=== PATIENT | male | born 1965 | race Caucasian/White ===

== ENCOUNTER 2024-09-27 17:17 | Inpatient (IN) | payer BC, SELFPAY ==
[2024-09-26] VITALS (24 sets, daily range): BP systolic 100–172; BP diastolic 58–117; PULSE 56–75; RESP 14–18; TEMP 35.5–37.1; O2SAT 91–100; BMI 34.5
[2024-09-26] MEDS: OXYCODONE (CR) 10 MG TAB.ER.12H PO (10:40)
[2024-09-26] MEDS: CELECOXIB 200 MG CAPSULE PO (10:40)
[2024-09-26] MEDS: ACETAMINOPHEN 500 MG TABLET 1000 MG PO (10:40)
[2024-09-26] MEDS: SODIUM CHLORIDE 0.9 % (FLUSH) 10 ML SYRINGE IVF (11:00)
[2024-09-26] MEDS: LACTATED RINGERS 1000 ML 1,000 ML 100 ML IV ×3 (11:00→15:46)
[2024-09-26] MEDS: MIDAZOLAM HCL 1 MG/ML inj IVP (11:55)
[2024-09-26] MEDS: fentaNYL 100 MCG/2 ML inj IVP (11:56)
--- NOTE | 2024-09-26 12:12 | SUR.PREOP ---
TIME?OUT:?1155 PT/RN/MDA?VERIFICATION?OF?SURGICAL?SITE,?PROCEDURE,?AND?CONSENT OBTAINED?PRIOR?TO?INVASIVE?PROCEDURE.
[2024-09-26] MEDS: CEFAZOLIN 2 GM INJ IVP (12:24)
[2024-09-26] MEDS: TRANEXAMIC ACID 100 MG/ML INJ 1000 MG IV (12:26)
--- NOTE | 2024-09-26 12:30 | CRLHL7_ITS ---
For Patients: As a result of the Cures Act, medical imaging exams and procedure reports are released immediately into your electronic medical record. You may view this report before your referring provider. If you have questions, please contact your health care provider. Indication: Hip replacement surgery Technique: AP hip fluoroscopic images. Fluoroscopy time 55.0 seconds. Findings/Impression: Hardware from a right total hip arthroplasty is in satisfactory position. Dictated by Al Vincent MD @ 09/27/2024 1:37:58 PM (Electronically Signed)
--- NOTE | 2024-09-26 12:30 | CRLHL7_ITS ---
For Patients: As a result of the Cures Act, medical imaging exams and procedure reports are released immediately into your electronic medical record. You may view this report before your referring provider. If you have questions, please contact your health care provider. Indication: Hip replacement surgery Technique: AP hip fluoroscopic image. Fluoroscopy time 68.2 seconds. Findings/Impression: Hardware from a right total hip arthroplasty is in satisfactory position. Dictated by Al Vincent MD @ 09/27/2024 1:37:18 PM (Electronically Signed)
--- NOTE | 2024-09-26 13:06 | W.PM.NB ---
Nerve Block Nerve Block Time Seen by Provider: 12:05 Date Seen: 09/26/24 Type of block requested by surgeon for post-operative analgesia: MARIAM/LFCN Side: left Time out performed: Yes Verification of patient name: Yes Verification of date of : Yes Site marking: site marked Name of person performing procedure: Oni Continuous monitoring Was continuous monitoring of O2 sat, B/P, tap and die maker technician, recorded every 15 minutes?: Yes Procedure Checklist: sterile prep, needles and gloves Ultrasound guided. Images saved: Yes Medications given in 5ml increments after negative aspiration: Marcaine %: 0.25 mL: 15 and Exparel mL: 10 Patient tolerated procedure well: Yes Additional comments: Needle noted below psoas tendon needle noted adjacent to LFCN Block Charges Block Charge (with Pro Fee): Other Periph Nerve Block Use of Ultrasound Machine for Block: Yes- US Guidance/pain block
--- NOTE | 2024-09-26 13:08 | W.PM.NB ---
Nerve Block Nerve Block Time Seen by Provider: 12:07 Date Seen: 09/26/24 Type of block requested by surgeon for post-operative analgesia: MARIAM/LFCN Side: right Time out performed: Yes Verification of patient name: Yes Verification of date of : Yes Site marking: site marked Name of person performing procedure: Oni Continuous monitoring Was continuous monitoring of O2 sat, B/P, phototypesetting equipment monitor, recorded every 15 minutes?: Yes Procedure Checklist: sterile prep, needles and gloves Ultrasound guided. Images saved: Yes Medications given in 5ml increments after negative aspiration: Marcaine %: 0.25 mL: 15 and Exparel mL: 10 Patient tolerated procedure well: Yes Additional comments: Needle noted below psoas tendon needle noted adjacent to LFCN Block Charges Block Charge (with Pro Fee): Other Periph Nerve Block Use of Ultrasound Machine for Block: Yes- US Guidance/pain block
--- NOTE | 2024-09-26 13:08 | W.ANESCHARGE ---
Anesthesia Charges Start Date/Time Anesthesia Start Date: 09/26/24 Anesthesia Start Time: 12:12 Stop Date/Time Anesthesia Stop Date: 09/26/24 Anesthesia Stop Time: 17:02
--- NOTE | 2024-09-26 14:52 | SUR.OPER ---
LEFT HIP DRESSING PLACED AT 14:40 BY Yarelis FALLON).
--- NOTE | 2024-09-26 16:14 | CRLHL7_ITS ---
For Patients: As a result of the Cures Act, medical imaging exams and procedure reports are released immediately into your electronic medical record. You may view this report before your referring provider. If you have questions, please contact your health care provider. Indication: Postop Technique: AP hip centered pelvis and lateral view right hip Findings/Impression: Hardware from a right total hip arthroplasty is in satisfactory position. Bone alignment is normal. No sign of acute fracture. Postop changes are within normal limits. Dictated by Al Vincent MD @ 09/27/2024 1:40:14 PM (Electronically Signed)
--- NOTE | 2024-09-26 16:14 | CRLHL7_ITS ---
For Patients: As a result of the Cures Act, medical imaging exams and procedure reports are released immediately into your electronic medical record. You may view this report before your referring provider. If you have questions, please contact your health care provider. Indication: Postop Technique: AP hip centered pelvis and lateral view left hip Findings/Impression: Hardware from a left total hip arthroplasty is in satisfactory position. Bone alignment is normal. No sign of acute fracture. Postop changes are within normal limits. Dictated by Al Vincent MD @ 09/27/2024 1:41:03 PM (Electronically Signed)
--- NOTE | 2024-09-26 16:21 | P.ORPRC_ITS ---
Procedure Note Date of procedure: 09/26/24 Procedure: PREOPERATIVE DIAGNOSIS: Bilateral hip osteoarthritis POSTOPERATIVE DIAGNOSIS: Bilateral hip osteoarthritis NAME OF OPERATION: Bilateral total hip arthroplasty SURGEON: Conrad Go MD MANAGER SHELL: Arlene Hendrix PA-C, CAIN Araiza IMPLANTS: 1. [employer] # 54 sector ingrowth cup 2. 36 x 54 +4 neutral polyethylene 3. Actis # 10 standard collared ingrowth stem 4. 36 + 8.5 ceramic femoral head on the left, -2 ceramic femoral head on the right ANESTHESIA: General ESTIMATED BLOOD LOSS: 1100 cc COMPLICATIONS: None SPECIMENS: None DRAINS: None PREOPERATIVE ANTIBIOTICS: Ancef 2 grams INDICATIONS: The patient is a 59-year-old with a longstanding history of severe, unrelenting bilateral hip pain secondary to end-stage bilateral hip osteoarthritis. Despite appropriate nonoperative management, including activity modification, use of an assist device, anti-inflammatories, [id number] pain medication, physical therapy and injections, they continue to have pain and disability. Operative intervention was offered. The risks, benefits and expected outcomes were discussed in detail. These included but were not limited to: Infection, bleeding, injury to blood vessel or nerve, venous thromboembolism. All questions were answered to their satisfaction. Use of an personal care assistant was necessary throughout the case for patient positioning and safety, soft tissue retraction and closure. PROCEDURE: The patient was placed supine on the [place] table. General anesthesia was administered. The personal care assistant made sure the patient was properly positioned. The left hip was prepped and draped in the usual sterile fashion. The image intensifier was brought in for a perfect AP pelvis and a perfect double tear drop AP view of each hip which were used for intraoperative templating with our fluoroscopic guide. An oblique incision was made 3 cm distal and 3 cm lateral to the anterior superior iliac spine. The personal care assistant retracted the soft tissues to protect them. Subcutaneous dissection was taken with electrocautery to the superficial fascia. The fascia was divided in line with the incision. Blunt dissection was carried medially to the tensor fascia darek and sartorius interval. Deep dissection was carried with electrocautery. The circumflex vessels were cauterized and divided. The capsule was exposed and then divided in a T- fashion, tagged with #1 Ethibond sutures. Retractors were placed in the joint, held by the personal care assistant. The corkscrew was placed in the femoral head. The neck cut was made in the subcapital region. We made a second neck cut more distal. The napkin ring of bone was removed. The femoral head was removed intact. Acetabular retractors were placed, held by the personal care assistant. The labrum was sharply debrided. The capsule was released. The 43 mm reamer was used to the true medial wall. We then enlarged in 2 mm increments using the image intensifier for our reamer placement. We impacted the cup which had excellent purchase. We placed the polyethylene. Attention was then turned to the proximal femur. The limb was placed in 140 degrees of external rotation, maximum extension and adduction. A significant amount of time was spent releasing the capsule to allow us to deliver the femur into the wound and complete the femoral side safely. Retractors were held by the personal care assistant throughout the femoral preparation. The box lining machine feeder and canal finder were used. Broaches were used to a stable size. The calcar reamer was used. Trial components were placed. The hip was reduced and was found to be stable with appropriate soft tissue tension. Length and offset had been nicely restored using the image intensifier and our fluoroscopic guide. Trial components were removed. The stem was impacted. We placed the femoral head. Again, the hip was reduced and was found to be stable with appropriate soft tissue tension. Length and offset had been nicely restored. The personal care assistant did a three minute dilute Betadine solution soak. The personal care assistant irrigated the wound with 3 liters of normal saline via pulse lavage. The personal care assistant repaired the anterior capsule with a #1 Vicryl and our previously placed Ethibond sutures. The personal care assistant closed the fascia over the tensor fascia darek with a #1 PDO Stratafix, subcutaneous tissues with 2-0 Vicryl, skin with a running 3-0 Stratafix and glue. A dry dressing was applied by the personal care assistant. Blood loss was 550 mL, the patient's vital signs were stable. Therefore, we elected to proceed with right hip replacement. The right hip was prepped and draped in the usual sterile fashion. An oblique incision was made 3 cm distal and 3 cm lateral to the anterior superior iliac spine. The personal care assistant retracted the soft tissues to protect them. Subcutaneous dissection was taken with electrocautery to the superficial fascia. The fascia was divided in line with the incision. Blunt dissection was carried medially to the tensor fascia darek and sartorius interval. Deep dissection was carried with electrocautery. The circumflex vessels were cauterized and divided. The capsule was exposed and then divided in a T-fashion, tagged with #1 Ethibond sutures. Retractors were placed in the joint, held by the personal care assistant. The corkscrew was placed in the femoral head. The neck cut was made in the subcapital region. We made a second neck cut more distal. The napkin ring of bone was removed. The femoral head was removed intact. Acetabular retractors were placed, held by the personal care assistant. The labrum was sharply debrided. The capsule was released. The 43 mm reamer was used to the true medial wall. We then enlarged in 2 mm increments using the image intensifier for our reamer placement. We impacted the cup which had excellent purchase. We placed the polyethylene. Attention was then turned to the proximal femur. The limb was placed in 140 degrees of external rotation, maximum extension and adduction. A significant amount of time was spent releasing the capsule to allow us to deliver the femur into the wound and complete the femoral side safely. Retractors were held by the personal care assistant throughout the femoral preparation. The box lining machine feeder and canal finder were used. Broaches were used to a stable size. The calcar reamer was used. Trial components were placed. The hip was reduced and was found to be stable with appropriate soft tissue tension. Length and offset had been nicely restored using the image intensifier and our fluoroscopic guide. Trial components were removed. The stem was impacted. We placed the femoral head. Again, the hip was reduced and was found to be stable with appropriate soft tissue tension. Length and offset had been nicely restored. The personal care assistant did a three minute dilute Betadine solution soak. The personal care assistant irrigated the wound with 3 liters of normal saline via pulse lavage. The personal care assistant repaired the anterior capsule with a #1 Vicryl and our previously placed Ethibond sutures. The personal care assistant closed the fascia over the tensor fascia darek with a #1 PDO Stratafix, subcutaneous tissues with 2-0 Vicryl, skin with a running 3-0 Stratafix and glue. A dry dressing was applied by the personal care assistant. Sponge and needle counts were correct x 2. The patient tolerated the procedure well; there were no apparent complications. They were awakened and extubated in the operating room, sent to the Post-Anesthesia Care Unit in satisfactory condit ion. PLAN: 1. The patient will be mobilized with physical therapy, weight-bearing as tolerates 2. Xarelto x 5 days then aspirin x 30 days will be used for DVT prophylaxis 3. The patient will be discharged once medically appropriate
--- NOTE | 2024-09-26 16:58 | P.IMCN_ITS ---
Date of Consult Patient: [facility] Patient Consult date: 09/26/24 Requesting Physician: Orthopedics Primary Care Provider: July Montalvo PA-C Consult Narrative Reason for consult: Medical management Narrative: Lei Vela is a 59 year old male past medical history significant for hypertension, hyperlipidemia, obesity, Ray's thyroiditis is POD#0 s/p bilateral total hip arthroplasty, Dr. Go. PCP is Tucker Covarrubias. There have been no perioperative complications or nursing concerns reported. Estimated total blood loss documented as 1100ml, consistent with extensive bilateral hip surgery. Updated and reviewed the active medical problems, past medical history, past surgical history, social history, allergies and medications in our electronic EMR. Postoperatively, patient remains quite sleepy following an extended surgery well into the afternoon. Appears comfortable. Pain has been appropriately managed thus far. No nausea. Has not yet had oral intake. Review of Systems Narrative: REVIEW OF SYSTEMS: Complete review of systems performed and negative unless otherwise stated in HPI or below. PFSH [facility] Medical History (Updated 09/26/24 @ 18:25 by Larisa Jose PA-C) Hypertension ?I10 - Essential (primary) hypertension (ICD-10) Osteoarthritis, hip, bilateral ?M16.0 - Bilateral primary osteoarthritis of hip (ICD-10) Chronic low back pain ?M54.50 - Low back pain, unspecified (ICD-10) ?G89.29 - Other chronic pain (ICD-10) Dermatitis ?L30.9 - Dermatitis, unspecified (ICD-10) Hyperlipidemia ?E78.5 - Hyperlipidemia, unspecified (ICD-10) Hyperthyroidism ?E05.90 - Thyrotoxicosis, unspecified without thyrotoxic crisis or storm (ICD-10) Sleep apnea ?G47.30 - Sleep apnea, unspecified (ICD-10) Lipoma of left thigh ?D17.24 - Benign lipomatous neoplasm of skin and subcutaneous tissue of left leg (ICD-10) Surgical History Hx of LASIK ?Z98.890 - Other specified postprocedural states (ICD-10) History of open reduction and internal fixation (ORIF) procedure ?Z98.890 - Other specified postprocedural states (ICD-10) History of vasectomy ?Z98.52 - Vasectomy status (ICD-10) History of nasal septoplasty ?Z98.890 - Other specified postprocedural states (ICD-10) History of tonsillectomy ?Z90.89 - Acquired absence of other organs (ICD-10) Family History Mother Colon cancer Other Heart disease Social History Narrative: -[place] What is your current living situation?: I presently have a place to live Problems where you live: no known problems In the past 12 months, utilities in danger of being shut off: no In the past 12 mos, have been you worried that your food would run out before you had money to buy more?: never true In the past 12 mos, the food you bought just didn't last and you didn't have money to buy more?: never true Highest level of school completed/degree received: Associate degree: occupational, technical, vocational program Smoking Status: Never smoker Do you use any of these nicotine containing products: None Second hand tobacco smoke exposure: No How often do you have a drink containing alcohol: 2-3 times a week Alcohol type: beer How many standard drinks containing alcohol do you have on a typical day: 1 or 2 How often do you have six or more drinks on one occasion: Never AUDIT-C Alcohol total score: 3 Non-prescribed substance use: denies use Caffeine: No Are you now , , , , never or living with a partner: Social isolation score (0-1 are the most socially isolated patients): 1 How often does anyone, including family, friends and others, physically hurt you : never How often does anyone, including family, friends and others, insult or talk down to you: never How often does anyone, including family, friends and others, threaten you with harm: never How often does anyone, including family, friends and others, scream or curse at you: never service: No Meds Home Medications and Allergies Home Medications ?Medication ?Instructions ?Recorded ?Confirmed ?Type acetaminophen 650 mg 1,300 mg PO Q12H PRN 07/31/24 09/26/24 History tablet,extended release (Tylenol Arthritis Pain) aspirin 325 mg tablet 325 mg PO Q4-6H PRN 07/31/24 09/26/24 History Allergies Allergy/AdvReac Type Severity Reaction Status Date / Time No Known Drug Allergies Allergy Verified 09/26/24 10:29 Exam Narrative: Exam Narrative: PHYSICAL EXAM General: Sleepy, brief interactions, otherwise NAD HEENT: Normocephalic, atraumatic, sclera white, EOMI, oral mucosa moist Cardiovascular: RRR, S1S2. No pitting edema Pulmonary: CTA bilaterally without rhonchi, rales, expiratory wheezes. No dyspnea Abdominal: Soft, nondistended, NTTP Neurological: Alert, answering questions appropriately, cranial nerves intact, no focal findings Extremities: No gross joint deformity or swelling. Postoperative dressing in place, dry. Neurovascularly intact Skin: Warm, dry. Const: Vital Signs, click to edit/add: Vital Signs - 24 hr 09/26/24 11:17 09/26/24 11:57 09/26/24 12:00 Temperature 98.8 F Pulse Rate 65 64 67 Respiratory Rate 16 16 16 Blood Pressure 172/109 H 161/106 H 140/100 H Pulse Oximetry 96 98 96 Oxygen Delivery Me thod Room Air Nasal Cannula Nasal Cannula Oxygen Flow Rate 2 2 09/26/24 12:05 Temperature Pulse Rate 62 Respiratory Rate 16 Blood Pressure 162/117 H Pulse Oximetry 96 Oxygen Delivery Me thod Nasal Cannula Oxygen Flow Rate 2 Assessment and Plan Assessment and plan (1) Osteoarthritis, hip, bilateral: Problem comment: -POD#0 s/p ROMINA, Dr. Go. EBL 1100 mL. Hemoglobin preoperatively 16.2. Recheck hemoglobin at 5:30 p.m. is 12.3. Recheck scheduled for morning -perioperative management including pain management and anticoagulation per [facility] surgery -encourage postoperative pulmonary hygiene -PT OT consults -plan to discharge home tomorrow with Status: Acute (2) Hyperlipidemia: Problem comment: -not currently on a statin. Yearly monitoring with PCP Status: Acute (3) Hyperthyroidism: Problem comment: -subclinical hypothyroidism from Ray's Status: Acute (4) Hypertension: Problem comment: -reported as white coat hypertension by PCP. Not on medications Status: Acute Total Time Spent Total Time Spent: Total time spent caring for the patient today was 45 minutes. This includes time spent for the visit reviewing the chart, time spent during the visit, time spent after the visit and documentation and planning in coordination of care.
--- NOTE | 2024-09-26 17:11 | W.ANESCHARGE ---
Anesthesia Charges Start Date/Time Anesthesia Start Date: 09/26/24 Anesthesia Start Time: 12:12 Stop Date/Time Anesthesia Stop Date: 09/26/24 Anesthesia Stop Time: 17:02
[2024-09-26 17:24] LABS: Hemoglobin* 12.3 gm/dL (13.5-17.5)
[2024-09-26] MEDS: HYDROmorphone 0.5 mg/0.5 ml inj IVP ×2 (18:03→19:46)
[2024-09-26] MEDS: CEFAZOLIN 2 GM in 0.9 % SODIUM CHLORIDE Mini-bag 100 ML IVPB (18:11)
[2024-09-26 18:18] LABS: Hemoglobin* 12.5 gm/dL (13.5-17.5)
[2024-09-26] MEDS: OXYCODONE 5 MG TABLET PO (21:36)
[2024-09-26] MEDS: SENNOSIDES 1 TAB TABLET 2 TAB PO (21:36)
[2024-09-26] MEDS: LACTATED RINGERS 1000 ML 1,000 ML 75 ML IV (21:37)
[2024-09-27] VITALS (7 sets, daily range): BP systolic 118–164; BP diastolic 78–88; PULSE 76–95; RESP 16–20; TEMP 36.2–37.4; O2SAT 91–100
[2024-09-27] MEDS: OXYCODONE 5 MG TABLET PO ×8 (00:16→20:50)
[2024-09-27] MEDS: CEFAZOLIN 2 GM in 0.9 % SODIUM CHLORIDE Mini-bag 100 ML IVPB (02:23)
[2024-09-27 06:22] LABS: Basophils Percent Auto 0.1 % (0.0-3.0); Hematocrit 34.2 % (37.0-53.0); Hemoglobin* 11.6 gm/dL (13.5-17.5); Immature Granulocytes Pct Auto 0.4 %; Lymphocytes Percent Auto 6.8 % (20-44); Mean Corpuscular HGB Conc 34 gm/dL (32-36); Mean Corpuscular Hemoglobin 31 pg (26-34); Mean Corpuscular Volume 91 fL (80-100); Monocytes Percent Auto 11.5 % (0.0-11.0); Neutrophils Percent Auto 81.2 % (42.0-72.0); Platelet Count* 283 K/uL (140-440); RDW Coefficient of Variation % 12.1 % (11.5-15.5); Red Blood Count 3.74 m/uL (4.30-5.90); White Blood Count* 19.01 K/uL (4.50-11.00)
[2024-09-27 06:24] LABS: Slide Review Reflex No
[2024-09-27 06:33] LABS: Sodium* 133 mmol/L (135-149)
[2024-09-27 06:34] LABS: Potassium* 4.8 mmol/L (3.6-5.1)
[2024-09-27] MEDS: ACETAMINOPHEN 500 MG TABLET 1000 MG PO ×4 (06:35→18:47)
[2024-09-27 06:36] LABS: Creatinine* 0.9 mg/dL (0.5-1.5); Est. Creatinine Clearance* 84.44; Estimated Glomerular Filt Rate 98 ml/min
[2024-09-27 06:37] LABS: Blood Urea Nitrogen* 19 mg/dL (7-30)
--- NOTE | 2024-09-27 07:00 | PC.NURSE ---
End of shift [id number]: Pt has been A&O, afebrile and VSS this shift. He?s been rating pain with movement at a 9-10/10 but at rest he is not in pain. Reports it?s been adequately controlled with PRN oxycodone, see eMAR for admin times. Pt was nauseous & lightheaded earlier in the evening when standing at bedside. D/t not officially tolerating ambulating yet, he should be Ax2 with gait belt & 2ww for first time ambulation. Overnight he?s been able to tolerate dangling/sitting on EOB. CMS is intact & bilateral hip dressings are C/D/I. Pt was unable to void; bladder scan done @ 0000 for 867 mL so he was straight cathed @ 0050 for 1100 mL. He has yet to void. Pt has been PO adequate & drinking enough water so he was saline locked. PIV in left hand C/D/I. Plan is to discharge home with his when he is medically appropriate. ?
--- NOTE | 2024-09-27 07:48 | PM.ORPN ---
Subjective Subjective Time Seen by Provider: 07:48 Date Seen: 09/27/24 Principal diagnosis: Status post bilateral hip replacement Interval history: Rebel denies nausea and vomiting currently. He is comfortable at rest supine in the hospital bed. He is not voiding on his own and has been straight cathed. He has swelling of both hips, denies numbness or tingling in the lower extremities. Ortho Exam Narrative Exam Narrative: Alert and oriented x3. Patient is in no acute distress. Converses without labored breathing. Hearing is grossly intact. Ambulates with a walker. Examination of both hips shows dressings are intact. Ecchymosis present. Soft tissue edema is present. Able to dorsiflex and plantar flex both ankles. Sensation is normal in both lower extremities. Good quad strength as tested in supine position. Calves are soft and nontender. There is no erythema or warmth or sign of infection about the hips. Const Vital Signs, click to edit/add: Vital Signs - 24 hr 09/26/24 11:17 09/26/24 11:57 09/26/24 12:00 Temperature 98.8 F Pulse Rate 65 64 67 Pulse Rate [Left Pulse Oximeter] Respiratory Rate 16 16 16 Blood Pressure 172/109 H 161/106 H 140/100 H Blood Pressure [Left Arm] Pulse Oximetry 96 98 96 Oxygen Delivery Method Room Air Nasal Cannula Nasal Cannula Oxygen Flow Rate 2 2 09/26/24 12:05 09/26/24 16:57 09/26/24 17:02 Temperature 97.3 F L Pulse Rate 62 62 64 Pulse Rate [Left Pulse Oximeter] Respiratory Rate 16 16 14 Blood Pressure 162/117 H 107/71 100/70 Blood Pressure [Left Arm] Pulse Oximetry 96 94 97 Oxygen Delivery Method Nasal Cannula Nasal Cannula Nasal Cannula Oxygen Flow Rate 2 4 4 09/26/24 17:10 09/26/24 17:15 09/26/24 17:20 Temperature Pulse Rate 56 L 57 L 63 Pulse Rate [Left Pulse Oximeter] Respiratory Rate 14 18 18 Blood Pressure 102/67 116/79 119/83 Blood Pressure [Left Arm] Pulse Oximetry 98 100 96 Oxygen Delivery Method Nasal Cannula Nasal Cannula Nasal Cannula Oxygen Flow Rate 4 2 2 09/26/24 17:25 09/26/24 17:30 09/26/24 17:35 Temperature Pulse Rate 62 66 67 Pulse Rate [Left Pulse Oximeter] Respiratory Rate 14 16 18 Blood Pressure 124/79 128/89 127/87 Blood Pressure [Left Arm] Pulse Oximetry 98 98 98 Oxygen Delivery Method Nasal Cannula Nasal Cannula Nasal Cannula Oxygen Flow Rate 2 2 2 09/26/24 17:40 09/26/24 17:58 09/26/24 18:00 Temperature 96 F L 96 F L Pulse Rate 62 62 66 Pulse Rate [Left Pulse Oximeter] Respiratory Rate 14 14 14 Blood Pressure 128/74 124/81 139/84 Blood Pressure [Left Arm] Pulse Oximetry 98 96 96 Oxygen Delivery Method Nasal Cannula Nasal Cannula Nasal Cannula Oxygen Flow Rate 2 2 2 09/26/24 18:15 09/26/24 18:30 09/26/24 18:45 Temperature 96 F L 96.4 F L 96.2 F L Pulse Rate 65 64 69 Pulse Rate [Left Pulse Oximeter] Respiratory Rate 16 16 16 Blood Pressure 135/58 L 127/79 131/85 Blood Pressure [Left Arm] Pulse Oximetry 91 97 95 Oxygen Delivery Method Nasal Cannula Nasal Cannula Nasal Cannula Oxygen Flow Rate 2 2 2 09/26/24 19:00 09/26/24 19:30 09/26/24 20:00 Temperature 96.4 F L Pulse Rate 70 68 75 Pulse Rate [Left Pulse Oximeter] Respiratory Rate 16 16 16 Blood Pressure 131/82 129/84 128/82 Blood Pressure [Left Arm] Pulse Oximetry 96 96 95 Oxygen Delivery Method Nasal Cannula Nasal Cannula Nasal Cannula Oxygen Flow Rate 2 2 2 09/26/24 21:00 09/26/24 22:00 09/26/24 23:00 Temperature Pulse Rate 74 75 Pulse Rate [Left Pulse Oximeter] Respiratory Rate 16 14 16 Blood Pressure 121/82 131/81 Blood Pressure [Left Arm] Pulse Oximetry 96 95 Oxygen Delivery Method Nasal Cannula Nasal Cannula Oxygen Flow Rate 2 2 09/26/24 23:00 09/27/24 00:00 09/27/24 04:30 Temperature 97.1 F L 98.1 F Pulse Rate 76 Pulse Rate [Left Pulse Oximeter] 81 Respiratory Rate 16 16 16 Blood Pressure 136/79 Blood Pressure [Left Arm] 121/78 Pulse Oximetry 100 100 99 Oxygen Delivery Method Room Air Room Air Room Air Oxygen Flow Rate Assessment and Plan Assessment and plan (1) Status post bilateral hip replacements: Problem details: 09/26/2024[place] Status: Acute Assessment and Plan: Plan for discharge is when they meets discharge criteria. He is not voiding. He has been straight cathed. He may need another day in house. Will see how physical therapy goes today. DVT prophylaxis upon discharge Xarelto 10 mg daily x5 days total, then his usual dose of aspirin 325 mg daily.. Remove dressing 1 week. Observe wound and phone Orthopedics with any questions or concerns Use Ice on operative hips unrestricted. Return to clinic in 1 week with PA for a wound check Return to clinic in 6 weeks with surgeon Minimize narcotic use. Wean off and discontinue soon as possible. Activities as tolerated. No strenuous activity. Attend outpt PT
[2024-09-27] MEDS: SENNOSIDES 1 TAB TABLET 2 TAB PO ×2 (08:46→20:50)
[2024-09-27] MEDS: RIVAROXABAN 10 MG TABLET PO (08:46)
[2024-09-27] MEDS: HYDROmorphone 0.5 mg/0.5 ml inj IVP (08:47)
--- NOTE | 2024-09-27 18:59 | PC.NURSE ---
Shift Note: Pain control issues this morning, pt was rating bilateral hip pain 8-10/10. PO Oxy and PRN 0.5mg dose dilaudid given IVP. Pain control has been better since. Ongoing urinary retention, pt was straight cathed this afternoon for 800cc. He has attempted to void x2 since and has been unable to void independently. Surgical dressings C,D, &I with active ice in place.
[2024-09-28 00:03] VITALS: BP 151/84; PULSE 93; RESP 20; TEMP 37.7; O2SAT 92
[2024-09-28] MEDS: ACETAMINOPHEN 500 MG TABLET 1000 MG PO ×2 (01:39→07:37)
[2024-09-28] MEDS: OXYCODONE 5 MG TABLET PO ×3 (01:40→11:54)
[2024-09-28 05:12] VITALS: BP 148/79; PULSE 92; PULSE 94; RESP 20; TEMP 36.6; O2SAT 93
[2024-09-28 06:44] LABS: Basophils Percent Auto 0.1 % (0.0-3.0); Eosinophils Percent Auto 0.1 % (0.0-7.0); Hemoglobin* 10.1 gm/dL (13.5-17.5); Immature Granulocytes Pct Auto 0.3 %; Lymphocytes Percent Auto 14.8 % (20-44); Mean Corpuscular HGB Conc 34 gm/dL (32-36); Mean Corpuscular Hemoglobin 31 pg (26-34); Mean Corpuscular Volume 92 fL (80-100); Monocytes Percent Auto 13.7 % (0.0-11.0); Platelet Count* 239 K/uL (140-440); RDW Coefficient of Variation % 12.2 % (11.5-15.5); Red Blood Count 3.25 m/uL (4.30-5.90); White Blood Count* 14.67 K/uL (4.50-11.00)
[2024-09-28 06:56] LABS: Slide Review Reflex Yes
[2024-09-28 07:00] VITALS: BP 152/87; PULSE 71; RESP 18; TEMP 36.8; O2SAT 93
--- NOTE | 2024-09-28 07:02 | PC.NURSE ---
Pt pleasant and cooperative. VSS Had difficulty voiding since returning from surgery 36 hrs ago. Was straight cathed x1 at 2045 for 100cc. he again tried to void and was unsuccessful. Placed a pollack that drained 1000 cc . This am was emptied for 600. He is up with assist of 1 walker and gait belt. He toleratedthis well. Bilat drsg are CDI. Minimal swelling noted to bilat thigh area.
[2024-09-28 07:06] LABS: Potassium* 3.9 mmol/L (3.6-5.1); Sodium* 133 mmol/L (135-149)
[2024-09-28 07:09] LABS: Estimated Glomerular Filt Rate 86 ml/min
[2024-09-28 07:10] LABS: Blood Urea Nitrogen* 20 mg/dL (7-30)
[2024-09-28 07:26] LABS: Slide Review Acceptable Review (Acceptable)
[2024-09-28] MEDS: RIVAROXABAN 10 MG TABLET PO (08:21)
[2024-09-28] MEDS: SENNOSIDES 1 TAB TABLET 2 TAB PO (08:21)
--- NOTE | 2024-09-28 14:22 | PC.NURSE ---
Discharge-- Pleasant and cooperative, alert and oriented patient discharged to home via wheelchair at approximately 11:55am. VSS and pt is afebrile. SPO2 maintained >90% on RA. Pain appears well managed with Oxycodone and Tylenol. Dressings to both hips C/D/I and CMS WNL. LS CTA. He denied nausea and tolerated regular diet without difficulty. He stated that he is passing flatus, but has had no post op BM. Pt discharged with catheter in place r/t urinary retention and catheter education was provided to both patient and spouse. Pt to call to set up catheter removal with PCP this week. He ambulated with SBA, belt and walker and tolerated it well. Discharge education was provided including diagnosis, medications, symptoms to report, catheter care and follow up plan. No further questions asked and SL was removed with tip intact.
--- OUTSIDE RECORDS SUMMARY | 2024-10-03 12:37 | XMS_ITS | Referral Summary ---
Author Organization [facility] Address [address] [place] [address] Care Team Providers Care Performance Manager Name Role Phone July Montalvo P.A.-C. Primary Care Pro vider Source Comments Patient records contain information from all sites at [facility]. For routine questions regarding patient records, call [phone] during business hours, M-F 8:00 AM - 5:00 PM Central Time. Record requests for emergency care only can be directed to [phone] at any time.[facility] Encounters Date Type Department Care Team Description 09/20/2024 10:27 AM PLASTER MECHANIC - 09/20/2024 11:59 PM PLASTER MECHANIC Hospital Encounter Department of Laboratory Medicine in [address] [phone] July Montalvo MPAS, P.A.-C. Preanesthetic Medical Exam Discharge Disposition: Home or Self Care 09/20/2024 10:00 AM PLASTER MECHANIC Office Visit Department of Community Internal Medicine in [address] [phone] July Montalvo MPAS, P.A.-C. Preanesthetic Medical Exam (Primary Dx); Hypertension Essential Primary; Hyperlipidemia 09/17/2024 Orders Only [facility] MNT July Montalvo MPAS, P.A.-C. 07/19/2024 Orders Only Department of Community Internal Medicine in [address] [phone] July Montalvo MPAS, P.AOmer-C. Thyroiditis Ray's (Primary Dx); Hyperlipidemia; Screening Test Laboratory; General Medical Examination Adult 07/17/2024 9:09 AM CDT - 07/17/2024 11:59 PM CDT Hospital Encounter Department of Laboratory Medicine in [address] [phone] July Montalvo MPAS, P.A.-COmer Hypertension Essential Primary; Screening Test Laboratory; Hyperlipidemia; Body Mass Index 32.0 To 32.9 Adult; General Medical Examination Adult; Elevated Thyroid Stimulating Hormone Discharge Disposition: Home or Self Care 07/17/2024 8:40 AM CDT Comprehensive Visit Department of Community Internal Medicine in [address] [phone] July Montalvo MPAS, P.A.-COmer Cancer Colon Family History (Primary Dx); Hypertension Essential Primary; Hyperlipidemia; Family History Heart Disease; Elevated Thyroid Stimulating Hormone; Pain Low Back Chronic; Body Mass Index 32.0 To 32.9 Adult; General Medical Examination Adult 07/08/2024 1:43 PM CDT - 07/08/2024 11:59 PM CDT Hospital Encounter Department of Radiology, [facility] in [address] [phone] Elaine Coles APRN, C.N.POmer, D.N.P. Pain Hip Bilateral Discharge Disposition: Home or Self Care 07/08/2024 11:00 AM CDT Comprehensive Visit Department of Spine in [address] [phone] Martina Ch APRN, C.N.P., M.S.N. Elaine Coles APRN, C.N.POmer, D.N.P. Pain Hip Bilateral (Primary Dx); Pain Back Lumbar from Last 3 Months Allergies Active Allergy Reactions Criticality Noted Date Comments Hydrochlorothiazide Other (see comments) 2023 Joint pain Medications * This document contains information received from the source organization and may not represent a complete record from that organization. aspirin [address] tablet Take 1 tablet by mouth at bedtime. 10/20/2010 Active Active Problems Problem Noted Date Diagnosed Date Thyroiditis Ray's 07/17/2024 Overview (07/19/2024): Subclinical hypothyroidism. Radiculopathy Lumbar 05/08/2024 Pain Low Back Chronic 05/08/2024 Hypertension Essential Primary 02/07/2022 Elevated Thyroid Stimulating Hormone 11/02/2018 Overview (03/18/2022): Elevated TSHin 2019 at 4.6. Elevated TPO antibodies over 500 in 2018. Normalized in Oct 2021. Body Mass Index 32.0 To 32.9 Adult 10/31/2017 Cancer Colon Family History 10/30/2017 Mass Neck 01/23/2017 Hyperlipidemia 10/25/2016 Family History Heart Disease 04/08/2016 Lipoma Skin 12/30/2012 Resolved Problems Problem Noted Date Diagnosed Date Resolved Date Pain Hip Bilateral 07/17/2024 4 Elevated Blood Pressure Without Hypertension 6 02/07/2022 Immunizations Name Administration Dates Next Due HepA Adult 07/27/2005,04/10/2003 HepB (discontinued) adolesce nt/high risk infant 07/27/2005,10/04/2004,04/01/2003 HepB Adult 07/27/2005, 4,04/10/2003,2002 Influenza, Seasonal, Injectable 12/18/2009 Influenza, Unspecified 12/18/2009 Polio, Unspecified 01/22/1976 Rubella 01/08/1970 Td (Adult), adsorbed 02/14/2007 Td Preservative Free (TENIVA C, DECAVAC) 02/14/2007 Tdap 10/31/2017 Social History Tobacco Use Types Packs/Day Years Used Date Smoking Tobacco: Never Smokeless Tobacco: Never Tobacco Cessation:Counseling Given: Not Answered Alcohol Use Standard Drinks/Week Comments Yes 1 (1 standard drink = 0.6 oz pur e alcohol) Occasional. [facility] Utilities Answer Date Recorded In the past 12 months has e [facility], gas, oil, or water [employer] threatened to shut off services in your home? Patient declined 07/10/2024 Humiliation, Afraid, Rape, and Kick questionnair e Answer Date Recorded Within the last year, have y ou been afraid of your partner or ex-partner? No 06/27/2023 Within the last year, have y ou been humiliated or emotionally abused in other ways by your partner or ex-partner? No Within the last year, have y ou been kicked, hit, slapped, or otherwise physically hurt by your partner or ex-partner? No 06/27/2023 Within the last year, have y ou been raped or forced to have any kind of sexual activity by your partner or ex-partner? No 06/27/2023 Social Connection and Isolat ion Panel [NHANES] Answer Date Recorded In a typical week, how many times do you talk on the phone with family, friends, or neighbors? More than three times a week 02/05/2022 How often do you get togethe r with friends or relatives? Three times a week 02/05/2022 How often do you attend [facility] or pentecostal services? 1 to 4 times per year 02/05/2022 Do you belong to any clubs o r organizations such as jain groups, unions, fraternal or athletic groups, or school groups? No 02/05/2022 How often do you attend meet ings of the clubs or organizations you belong to? 1 to 4 times per year 02/05/2022 Are you , , di vorced, , never , or living with a partner? 02/05/2022 AUDIT-C Answer Date Recorded Q1: How often do you have a drink containing alc ohol? 2-4 times a month 02/05/2022 Q2: How many drinks containi ng alcohol do you have on a typical day when you are drinking? 3 or 4 02/05/2022 Q3: How often do you have si x or more drinks on one occasion? Less than monthly 02/05/2022 Overall Financial Resource Strain (CARDIA) Answe r Date Recorded How hard is it for you to pa y for the very basics like food, housing, medical care, and heating? Not hard at all 06/27/2023 PHQ-2 Answer Date Recorded PHQ-2 Score 0 12/20/2023 [facility] of Occupat ional Health - Occupational Stress Questionnaire Answer Date Recorded Do you feel stress - tense, restless, nervous, or anxious, or unable to sleep at night because your mind is troubled all the time - these days? Not at all 02/05/2022 Exercise Vital Sign Answer Date Recorde d On average, how many days pe r week do you engage in moderate to strenuous exercise (like a brisk walk)? 7 days 07/10/2024 On average, how many minutes do you engage in exercise at this level? 60 min 07/10/2024 Hunger Vital Sign Answer Date Recorded Within the past 12 months, y ou worried that your food would run out before you got the money to buy more. Patient declined Within the past 12 months, t he food you bought just didn't last and you didn't have money to get more. Patient declined PRAPARE - Transportation Answer Date Re corded In the past 12 months, has l ack of transportation kept you from medical appointments or from getting medications? No 06/14 In the past 12 months, has l ack of transportation kept you from meetings, work, or from getting things needed for daily living? No 07/10/2024 Nutrition Answer Date Recorded On average, how many serving s of fruits and vegetables do you eat per day (serving size is equal to 1 cup or approximately the size of a tennis ball)? 0-2 07/10/2024 Dental Answer Date Recorded Dental: Regular Dentist Yes 01/01/20 21 Employment Answer Date Recorded Employment status Employed and actively working without restrictions 07/10/2024 Housing Stability Answer Date Recorded What is your living situation today? [facility] 07/10/2024 Education Answer Date Recorded What is the highest level of school you have completed or the highest degree you have received? 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 Not on file Not on file Last Filed Vital Signs Vital Sign Reading Time Taken Comments Blood Pressure 166/109 09/20/2024 9:58 AM PLASTER MECHANIC patient is in pain Pulse 71 09/20/2024 9:58 AM PLASTER MECHANIC Temperature 35.9 C (96.6 F) 09/20/2024 9:54 AM PLASTER MECHANIC Respiratory Rate 16 09/20/2024 9:54 AM PLASTER MECHANIC Oxygen Saturation 97% 09/20/2024 9:5 8 AM PLASTER MECHANIC Inhaled Oxygen Concentration - - Weight 103 kg (226 lb 11.9 oz) 09/20/2024 9:54 AM PLASTER MECHANIC Height 176 cm (5' 9.29) 07/17/2024 8:2 4 AM CDT with shoes Body Mass Index 33.2 07/17/2024 8:24 AM CDT Plan of Treatment Not on file Procedures Procedure Name Priority Date/Time Associated Diagnosis Comments CBC WITH DIFFERENTIAL, B Routine 09/20/2024 10:33 AM PLASTER MECHANIC Preanesthetic Medical Exam THYROPEROXIDASE (TPO) ABS, S Routine 07/17/2024 9:15 AM CDT MS T4 FREE Routine 07/17/2024 9:15 AM CDT THYROID FUNCTION CASCADE, S Routine 07/17/2024 9:15 AM CDT Elevated Thyroid Stimulating Hormone GLUCOSE, FASTING, S/P Routine 07/17/2024 9:15 AM CDT Hypertension Essential Primary Hyperlipidemia Body Mass Index 32.0 To 32.9 Adult General Medical Examination Adult LIPID PANEL, S Routine 07/17/2024 9:15 AM CDT Hypertension Essential Primary Hyperlipidemia Body Mass Index 32.0 To 32.9 Adult General Medical Examination Adult PROSTATE-SPECIFIC AG (PSA) SCRN, S Routine 07/17/2024 9:15 AM CDT Screening Test Laboratory BASIC METABOLIC PANEL, S/P Routine 07/17/2024 9:15 AM CDT Hypertension Essential Primary DX HIPS AND PELVIS BILATERAL MINIMUM 5 VIEWS RAD - Routine (most inpatients and all outpatients) 07/08/2024 2:21 PM CDT Pain Hip Bilateral HCV AB SCRN W/REFLEX TO HCV PCR, S Routine 10/25/2016 9:53 AM PLASTER MECHANIC from Last 3 Months or Most Recently Relevant to Health Maintenance Results * (ABNORMAL) CBC with Differential, Blood (09/20/2024 10:33 AM PLASTER MECHANIC) Hemoglobin 16.2 13.2 - 16.6 g/dL 09/20/2024 10:40 AM PLASTER MECHANIC FB60 Hematocrit 47.0 38.3 - 48.6 % 09/20/2024 10:40 AM PLASTER MECHANIC FB60 Erythrocytes 5.32 4.35 - 5.65 x10(12)/L 09/20/2024 10:40 AM PLASTER MECHANIC FB60 MCV 88.3 78.2 - 97.9 fL 09/20/2024 10:40 AM PLASTER MECHANIC FB60 RBC Distrib Width 12.1 11.8 - 14.5 % 09/20/2024 10:40 AM PLASTER MECHANIC FB60 Platelet Count 283 135 - 317 x10(9)/L 09/20/2024 10:40 AM PLASTER MECHANIC FB60 Leukocytes 8.3 3.4 - 9.6 x10(9)/L 09/20/2024 10:40 AM PLASTER MECHANIC FB60 Neutrophils 5.03 1.56 - 6.45 x10(9)/L 09/20/2024 10:40 AM PLASTER MECHANIC FB60 Lymphocytes 2.18 0.95 - 3.07 x10(9)/L 09/20/2024 10:40 AM PLASTER MECHANIC FB60 Monocytes 0.93(H) 0.26 - 0.81 x10(9)/L 09/20/2024 10:40 AM PLASTER MECHANIC FB60 Eosinophils 0.15 0.03 - 0.48 x10(9)/L 09/20/2024 10:40 AM PLASTER MECHANIC FB60 Basophils <0.04 0.01 - 0.08 x10(9)/L 09/20/2024 10:40 AM PLASTER MECHANIC FB60 Blood (Blood, Venous) 09/20/2024 10:33 AM PLASTER MECHANIC 09/20/2024 10:33 AM PLASTER MECHANIC July ROJAS, P.A.-C. LAB BLOOD ADD-ON Final Result Performing Organization Address [facility] Co de Phone Number [facility] [address] [place] [address], [place] FB60 [facility] [place] [address] [place] [address] * T4 (Thyroxine), Free, Serum (07/17/2024 9:15 AM CDT) T4 (Thyroxine), Free, S 0.9 0.9 - 1.7 ng/dL 07/17/2024 2:26 PM CDT OWAT Blood 07/17/2024 9:15 AM CDT 07/17/2024 1:01 PM CDT July ROJAS, P.A.-C. LAB BLOOD ADD-ON Final Result Performing Organization Address [facility] de Phone Number [facility] [address] [place] [address], [facility] OWAT [facility] in [place] [address] [place] [phone] * (ABNORMAL) Lipid Panel (07/17/2024 9:15 AM CDT) Triglycerides 246(H) mg/dL 07/17/2024 1:29 PM CDT OWAT Comment: ----REFERENCE VALUE---- Normal: <150 mg/dL Borderline High: 150-199 mg/dL High: 200-499 mg/dL Very High: > or =500 mg/dL Cholesterol, Total 211(H) mg/dL 2023 1:29 PM CDT OWAT Comment: ----REFERENCE VALUE---- Desirable: < 200 mg/dL Borderline High: 200 - 239 mg/dL High: > or = 240 mg/dL Cholesterol, LDL, Calculated 135(H) mg/dL 07/17/2024 1:29 PM CDT OWAT Comment: ----REFERENCE VALUE---- Desirable: <100 mg/dL Above Desirable: 100-129 mg/dL Borderline High: 130-159 mg/dL High: 160-189 mg/dL Very High: >=190 mg/dL ----ADDITIONAL INFORMATION---- LDL cholesterol calculated using the Conklin/NIH equation. Cholesterol, HDL 32(L) >=40 mg/dL 07/17/20 1:29 PM CDT OWAT Cholesterol, Non-HDL, Calculated 179(H) mg/dL 07/17/2024 1:29 PM CDT [facility] Comment: ----REFERENCE VALUE---- Desirable: <130 mg/dL Above Desirable: 130-159 mg/dL Borderline High: 160-189 mg/dL High: 190-219 mg/dL Very High: > or =220 mg/dL Fasting (8 HR or more) Yes 07/17/2024 9:16 AM CDT [facility] Blood (Blood, Venous) 07/17/2024 9:15 AM CDT 07/17/2024 1:01 PM CDT us July ROJAS, P.A.-C. LAB BLOOD ADD-ON Final Result Performing Organization Address [facility]/ZIP Co de Phone Number [facility] [address] [place] [address], [facility] OWAT [facility] [place] [address] [place] [address] * (ABNORMAL) Thyroid Function [place] (07/17/2024 9:15 AM CDT) TSH, Sensitive 4.8(H) 0.3 - 4.2 mIU/L 07/17/2024 1:42 PM CDT OWAT Blood (Blood, Venous) 07/17/2024 9:15 AM CDT 07/17/2024 1:01 PM CDT us July ROJAS, P.A.-C. LAB BLOOD ADD-ON Final Result [facility] [address] [place] [address], [place] [facility] [place] [address] [place] [address] * PSA (Prostate-Specific Antigen) Screen (07/17/2024 9:15 AM CDT) Prostate-Specific Ag 2.0 <=3.5 ng/mL 07/17/2024 1:37 PM CDT [facility] Comment: ----ADDITIONAL INFORMATION---- The testing method is an electrochemiluminescence assay manufactured by [employer] and performed on the Modular or Jania system. Values obtained with different assay methods or kits may be different and cannot be used interchangeably. Test results cannot be interpreted as absolute evidence for the presence or absence of malignant disease. Blood (Blood, Venous) 07/17/2024 9:15 AM CDT 07/17/2024 1:00 PM CDT July ROJAS, P.A.-C. LAB BLOOD ADD-ON Final Result Performing Organization Address City/[facility]/ZIP Co de Phone Number [facility] [address] [place] [address], [facility] [place] [address] [place] [address] * (ABNORMAL) Thyroperoxidase (TPO) Antibodies (07/17/2024 9:15 AM CDT) Thyroperoxidase Ab, S 348.0(H) <34.0 IU/mL 07/18/2024 2:59 PM CDT DTL Blood 07/17/2024 9:15 AM CDT 07/18/2024 2:32 PM CDT July ROJAS, P.A.-C. LAB BLOOD ADD-ON Final Result [facility] [address] [place] [address], [place] DTL [facility] [address] [place] [address] * Glucose, Fasting (07/17/2024 9:15 AM CDT) Glucose, P 92 70 - 100 mg/dL 07/17/2024 1:18 PM CDT OWAT Last Intake 14 hr 07/17/2024 1:00 PM CDT OW[facility] Blood (Blood, Venous) 07/17/2024 9:15 AM CDT 07/17/2024 12:59 PM CDT us July ROJAS, P.A.-C. LAB BLOOD NON ADD -ON Final Result [facility] [address] [place] [address], [place] OW[place] [facility] [place] [address] [place] [address] * Basic Metabolic Panel (07/17/2024 9:15 AM CDT) Potassium, P 4.5 3.6 - 5.2 mmol/L 07/17/2024 1:29 PM CDT OWAT Sodium, P 141 135 - 145 mmol/L 07/17/2024 1:29 PM CDT OWAT Chloride, P 104 98 - 107 mmol/L 07/17/2024 1:29 PM CDT OWAT Bicarbonate, P 26 22 - 29 mmol/L 07/17/2024 1:29 PM CDT OW[facility] Anion Gap, P 11 7 - 15 07/17/2024 1:29 PM CDT OW[facility] BUN (Blood Urea Nitrogen), P 13 8 - 24 mg/dL 07/17/2024 1:29 PM CDT OWAT Creatinine 1.06 0.74 - 1.35 mg/dL 07/17/2024 1:29 PM CDT OWAT Estimated GFR (eGFR) 81 >=60 mL/min/BSA 07/17/2024 1:29 PM CDT OWAT Comment: Estimated GFR calculated using the 2020 CKD_EPI creatinine equation. Calcium, Total, P 9.6 8.6 - 10.0 mg/dL 07/17/2024 1:29 PM CDT OWAT Glucose, P CANCELED mg/dL 07/17/2024 1:02 PM CDT OWAT Comment: Duplicate test request. Result canceled by the ancillary. Blood (Blood, Venous) 07/17/2024 9:15 AM CDT 07/17/2024 1:01 PM CDT us July ROJAS, P.A.-C. LAB BLOOD ADD-ON Final Result [facility] [address] [place] [address], [facility] OWAT [facility] [place] [address] [place] [address] * DX Hips and Pelvis Bilateral 5+ Views (07/08/2024 2:21 PM CDT) Anatomical Region Laterality Modality Lower Extremity, Pelvis, Hip , Musculoskeletal RST LOS, Musculoskeletal ARZ LOS, Muskuloskeletal FLA LOS Bilateral Digit al Radiography Impressions 07/08/2024 3:17 PM CDT Bilateral advanced hip osteoarthritis with underlying hip dysplasia. Narrative 07/08/2024 3:17 PM CDT EXAM: DX HIPS AND PELVIS BILATERAL 5+ VIEWS Procedure Note Miguel Angel Rutledge M.D. - 07/08/2024 EXAM: DX HIPS AND PELVIS BILATERAL 5+ VIEWS IMPRESSION: Bilateral advanced hip osteoarthritis with underlying hip dysplasia. us Elaine Coles APRN, C.N.P., D.N.P. IMG DIAGNOSTIC IMAGING PROCEDURES Final Result * HCV Ab w/Reflex to HCV PCR, S (medicare) (10/25/2016 9:53 AM PLASTER MECHANIC) HXHCV Ab [facility] Negative Negative POWERCHART Comment: Bavejv-ob-psjzcz ratio is <1.00. Test Performed by: [place] [address] Managed Care Manager: Ramirez Peraza II, M.D., Ph.D. Blood 10/25/2016 9:53 AM PLASTER MECHANIC Rasheeda Coronel M.D. LAB MICROBIOLOGY - BLOOD ORDERAB LES Final Result POWERCHART from Last 3 Months or Most Recently Relevant to Health Maintenance Insurance [facility] Care Teams Performance Manager Relationship Specialty Start Date End Date July Montalvo MPAS, P.A.-C. [address] [place] [phone] PCP - General Internal Medicine 11/08/22
--- OUTSIDE RECORDS SUMMARY | 2024-10-03 12:37 | XMS_ITS | Clinical Summary ---
Author Organization [facility] Address [address] [place] [address] Care Team Providers Care Pile Driver Operator Barge Mounted Name Role Phone July Montalvo P.A.-C. Primary Care Pro vider Source Comments Patient records contain information from all sites at [facility]. For routine questions regarding patient records, call [phone] during business hours, M-F 8:00 AM - 5:00 PM Central Time. Record requests for emergency care only can be directed to [phone] at any time.[facility] Allergies Active Allergy Reactions Criticality Noted Date [...] 4.6. Elevated TPO antibodies over 500 in 2019. Normalized in Oct 2021. Body Mass Index 32.0 To 32.9 Adult 10/31/2017 Cancer Colon Family History 10/30/2017 Mass Neck 01/23/2017 Hyperlipidemia 10/25/2016 Family History Heart Disease 04/08/2016 Lipoma Skin 12/30/2012 Resolved Problems Problem Noted Date Diagnosed Date Resolved Date Pain Hip Bilateral 07/17/2024 Elevated Blood Pressure Without Hypertension 6 02/07/2022 Encounters Date Type Department Care Team Description 09/20/2024 10:27 AM IMMIGRATION JUDGE - 09/20/2024 11:59 PM IMMIGRATION JUDGE Hospital Encounter Department of Laboratory Medicine in [address] [address] July Montalvo MPAS, P.A.-C. Preanesthetic Medical Exam Discharge Disposition: Home or Self Care 09/20/2024 10:00 AM IMMIGRATION JUDGE Office Visit Department of Community Internal Medicine in [address] [address] July Montalvo MPAS, P.A.-C. Preanesthetic Medical Exam (Primary Dx); Hypertension Essential Primary; Hyperlipidemia 09/17/2024 Orders Only [facility] July Montalvo MPAS, P.A.-C. 07/19/2024 Orders Only Department of Community Internal Medicine in [address] [address] July Montalvo MPAS, P.A.-C. Thyroiditis Ray's (Primary Dx); Hyperlipidemia; Screening Test Laboratory; General Medical Examination Adult 07/17/2024 9:09 AM CDT - 07/17/2024 11:59 PM CDT Hospital Encounter Department of Laboratory Medicine in [address] [address] July Montalvo MPAS, P.A.-C. Hypertension Essential Primary; Screening Test Laboratory; Hyperlipidemia; Body Mass Index 32.0 To 32.9 Adult; General Medical Examination Adult; Elevated Thyroid Stimulating Hormone Discharge Disposition: Home or Self Care 07/17/2024 8:40 AM CDT Comprehensive Visit Department of Community Internal Medicine in [address] [address] July Montalvo MPAS, P.A.-C. Cancer Colon Family History (Primary Dx); Hypertension Essential Primary; Hyperlipidemia; Family History Heart Disease; Elevated Thyroid Stimulating Hormone; Pain Low Back Chronic; Body Mass Index 32.0 To 32.9 Adult; General Medical Examination Adult 07/08/2024 1:43 PM CDT - 07/08/2024 11:59 PM CDT Hospital Encounter Department of Radiology, [facility], in [place], [place] [address] [place] [address] Elaine Coles APRN, C.N.P., D.N.P. Pain Hip Bilateral Discharge Disposition: Home or Self Care 07/08/2024 11:00 AM CDT Comprehensive Visit Department of Spine in [place], [place] [address] [place] [address] Martina Ch APRN, C.N.P., M.S.N. Elaine Coles APRN C.N.POmer, D.N.P. Pain Hip Bilateral (Primary Dx); Pain Back Lumbar from Last 3 Months Immunizations Name Administration Dates Next Due HepA Adult 07/27/2005,04/10/2003 HepB (discontinued) adolesce nt/high risk infant 07/27/2005,10/04/2004,04/01/2003 HepB Adult 07/27/2005, 4,04/10/2003,2002 Influenza, Seasonal, Injectable 12/18/2009 Influenza, Unspecified 12/18/2009 Polio, Unspecified 01/22/1976 Rubella 01/08/1970 Td (Adult), adsorbed 02/14/2007 Td Preservative Free (TENIVA C, DECAVAC) 02/14/2007 Tdap 10/31/2017 Family History Medical History Relation Name Comments Atrial fibrillation Father Del Vela Cataracts Father Del Vela Coronary artery disease Father Del Vela End stage renal disease Father Del Vela Gout Father Del Vela Heart attack, age 70 Father Del Vela Heart failure Father Del Vela Hypertension Father Del Vela Stroke Father Del Vela Colon cancer Mother Ciarra Vela Colon polyps Mother Ciarra Vela Deep vein thrombosis Mother Ciarra Vela Medicat ion induced Stroke Mother Ciarra Vela Colon polyps Sister Key Vela Hodgkin's lymphoma Sister Key Vela Relation Name Status Comments Father Casey Vela Mother Ciarra Vela Sister Key Vela Social History Tobacco Use Types Packs/Day Years Used Date Smoking Tobacco: Never Smokeless Tobacco: Never Tobacco Cessation:Counseling Given: Not Answered Alcohol Use Standard Drinks/Week Comments Yes 1 (1 standard drink = 0.6 oz pur e alcohol) Occasional. [facility] Utilities Answer Date Recorded In the past 12 months has [facility] [employer], [employer], oil, or water [employer] threatened to shut off services in your [...] week 02/05/2022 How often do you attend chur ch or buddhist services? 1 to 4 times per year 02/05/2022 Do you belong to any clubs o r organizations such as confucianism groups, unions, fraternal or athletic groups, or [...] Answer Date Recorded PHQ-2 Score 0 12/20/2023 [facility] - Occupational Stress [...] Date Recorded Dental: Regular Dentist Yes 01/01/20 Employment Answer Date Recorded Employment status Employed and actively working without restrictions 07/10/2024 Housing Stability Answer Date Recorded What is your living situation today? I have a [facility] [address] place to live 07/10/2024 Education Answer Date Recorded What is the highest level of school you have completed or the highest degree you have received? 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 Not on file Not on file Last Filed Vital Signs Vital Sign Reading Time Taken Comments Blood Pressure 166/109 09/20/2024 9:58 AM IMMIGRATION JUDGE patient is in pain Pulse 71 09/20/2024 9:58 AM IMMIGRATION JUDGE Temperature 35.9 C (96.6 F) 09/20/2024 9:54 AM IMMIGRATION JUDGE Respiratory Rate 16 09/20/2024 9:54 AM IMMIGRATION JUDGE Oxygen Saturation 97% 09/20/2024 9:5 8 AM IMMIGRATION JUDGE Inhaled Oxygen Concentration - - Weight 103 kg (226 lb 11.9 oz) 09/20/2024 9:54 AM IMMIGRATION JUDGE Height 176 cm (5' 9.29) 07/17/2024 8:2 4 AM CDT with shoes Body Mass Index 33.2 07/17/2024 8:24 AM CDT Plan of Treatment Health Maintenance Due Date Last Done Comments CT Colonography 1965 Cologuard 1965 HIV Screening 1965 IPV Vaccines (2 of 3 - 4-dose series) 02/19/1976 01/22/1976 Zoster Vaccines (1 of 2) 2014 COVID-19 Vaccine ( - season) 2024 Colonoscopy 07/29/2024 07/29/2019 (Perf ormed elsewhere), 07/29/2019, 08/04/2014 Colorectal Cancer Surveillance 07/29/2024 Influenza Vaccine (#1) 2024 12/18/2009, 2009 Office Visit for Blood Pressure Check / Re-check 12/21/2024 09/20/2024 Lipid (Cholesterol) Screening 07/17/2025 07/17/2024, 03/24/2022, 03/16/2022, Additional history exists Visit: Chronic Disease, age 18+ 09/20/2025 09/20/2024, 07/17/2024 Fasting Glucose for Diabetes Screening 07/17/2027 07/17/2024, 03/16/2022, 02/24/2022, Additional history exists DTaP,Tdap,and Td Vaccines (2 - Td or Tdap) 10/31/2027 10/31/2017, 02/14/2007, 02/14/2007 Hepatitis A Vaccines Completed 07/27/2005, 04/10/20 03 Hepatitis B Vaccines Completed 07/27/2005, 07/27/2005, 10/04/2004, Additional history exists Hepatitis C Screening Completed 10/25/2016 Depression Screening (Annual PHQ-2) Completed 12/25/2023, 12/20/2023 Pneumococcal vaccine (0-64 years) Aged Out No longer eligible based on patient's age to complete this topic Procedures Procedure Name Priority Date/Time Associated Diagnosis Comments CBC WITH DIFFERENTIAL, B Routine 09/20/2024 10:33 AM IMMIGRATION JUDGE Preanesthetic Medical Exam THYROPEROXIDASE (TPO) ABS, S Routine 07/17/2024 9:[address] T4 FREE Routine 07/17/2024 9:15 AM CDT [...] HCV PCR, S Routine 10/25/2016 9:53 AM IMMIGRATION JUDGE from Last 3 Months or Most Recently Relevant to Health Maintenance Results * (ABNORMAL) CBC with Differential, Blood (09/20/2024 10:33 AM IMMIGRATION JUDGE) Hemoglobin 16.2 13.2 - 16.6 g/dL 09/20/2024 10:40 AM IMMIGRATION JUDGE FB60 Hematocrit 47.0 38.3 - 48.6 % 09/20/2024 10:40 AM IMMIGRATION JUDGE FB60 Erythrocytes 5.32 4.35 - 5.65 x10(12)/L 09/20/2024 10:40 AM IMMIGRATION JUDGE FB60 MCV 88.3 78.2 - 97.9 fL 09/20/2024 10:40 AM IMMIGRATION JUDGE FB60 RBC Distrib Width 12.1 11.8 - 14.5 % 09/20/2024 10:40 AM IMMIGRATION JUDGE FB60 Platelet Count 283 135 - 317 x10(9)/L 09/20/2024 10:40 AM IMMIGRATION JUDGE FB60 Leukocytes 8.3 3.4 - 9.6 x10(9)/L 09/20/2024 10:40 AM IMMIGRATION JUDGE FB60 Neutrophils 5.03 1.56 - 6.45 x10(9)/L 09/20/2024 10:40 AM IMMIGRATION JUDGE FB60 Lymphocytes 2.18 0.95 - 3.07 x10(9)/L 09/20/2024 10:40 AM IMMIGRATION JUDGE FB60 Monocytes 0.93(H) 0.26 - 0.81 x10(9)/L 09/20/2024 10:40 AM IMMIGRATION JUDGE FB60 Eosinophils 0.15 0.03 - 0.48 x10(9)/L 09/20/2024 10:40 AM IMMIGRATION JUDGE FB60 Basophils <0.04 0.01 - 0.08 x10(9)/L 09/20/2024 10:40 AM IMMIGRATION JUDGE FB60 Blood (Blood, Venous) 09/20/2024 10:33 AM IMMIGRATION JUDGE 09/20/2024 10:33 AM IMMIGRATION JUDGE Tonya Duarte.-C. LAB BLOOD ADD-ON Final Result Performing Organization Address [facility]/ZIP Co de Phone Number [facility] [address] [place] [address], [place] FB60 [facility] [place] [address] [place] [address] * T4 (Thyroxine), Free, Serum (07/17/2024 9:15 AM CDT) T4 (Thyroxine), Free, S 0.9 0.9 - 1.7 ng/dL 07/17/2024 2:26 PM CDT OWAT Blood 07/17/2024 9:15 AM CDT 07/17/2024 1:01 PM CDT July ROJAS, Roman.A.-C. LAB BLOOD ADD-ON Final Result Performing Organization Address City/[facility]/ZIP Co de Phone Number [facility] [address] [place] [address], [place] OWAT [facility] [place] [address], [place] [address] * (ABNORMAL) Lipid Panel (07/17/2024 9:15 AM [...] ROJAS, P.A.-C. LAB BLOOD ADD-ON Final Result [facility] [address] [place] [address], [facility] OWAT [facility] [place] [address] [place] [address] * (ABNORMAL) Thyroid Function Coffey (07/17/2024 9:15 AM CDT) TSH, Sensitive 4.8(H) 0.3 - 4.2 mIU/L 07/17/2024 1:42 PM CDT OWAT Blood (Blood, Venous) 07/17/2024 9:15 AM CDT 07/17/2024 1:01 PM CDT July ROJAS, P.A.-C. LAB BLOOD ADD-ON Final Result Performing Organization Address City/[facility] Co de Phone Number [facility] [address] [place] [address], [facility] [place] [address] [place] [address] * PSA (Prostate-Specific Antigen) Screen (07/17/2024 9:15 AM CDT) Prostate-Specific Ag 2.0 <=3.5 ng/mL 07/17/2024 1:37 PM CDT [facility] Comment: ----ADDITIONAL INFORMATION---- The testing method is an electrochemiluminescence assay manufactured by [employer] and performed on the Modular or Jania system. Values obtained with different assay methods or kits may be different and cannot be used interchangeably. Test results cannot be interpreted as absolute evidence for the presence or absence of malignant disease. Blood (Blood, Venous) 07/17/2024 9:15 AM CDT 07/17/2024 1:00 PM CDT July ROJAS, P.A.-C. LAB BLOOD ADD-ON Final Result Performing Organization Address [facility] Co de Phone Number [facility] [address] [place] [address], [facility] [place] [address], [place] [address] * (ABNORMAL) Thyroperoxidase (TPO) Antibodies (07/17/2024 9:15 AM CDT) Thyroperoxidase Ab, S 348.0(H) <34.0 IU/mL 07/18/2024 2:59 PM CDT DTL Blood 07/17/2024 9:1 5 AM CDT 07/18/2024 2:32 PM CDT July ROJAS, P.A.-C. LAB BLOOD ADD-ON Final Result Performing Organization Address [facility]/ZIP Co de Phone Number [facility] [address] [place] [address], [place] DTL [facility] [address] [place] [address] * Glucose, Fasting (07/17/2024 9:15 AM CDT) Glucose, P 92 70 - 100 mg/dL 07/17/2024 1:18 PM CDT OWAT Last Intake 14 hr 07/17/2024 1:00 PM CDT OWAT Blood (Blood, Venous) 07/17/2024 9:15 AM CDT 07/17/2024 12:59 PM CDT July ROJAS, P.A.-C. LAB BLOOD NON ADD -ON Final Result [facility] [address] [address], [place] OWAT [facility] [place] [address] [place] [address] * Basic Metabolic Panel (07/17/2024 9:15 AM [...] ROJAS, P.A.-C. LAB BLOOD ADD-ON Final Result [facility] [address] [place] [address], [facility] OWAT [facility] [place] [address] [place] [address] * DX Hips and Pelvis Bilateral 5+ [...] HCV PCR, S (medicare) (10/25/2016 9:53 AM IMMIGRATION JUDGE) HXHCV Ab [facility] Negative Negative POWERCHART Comment: Diqzza-py-laicll ratio is <1.00. Test Performed by: [address] [address] Motion Picture Projectionist Apprentice: Ramirez Peraza II, M.D., Ph.D. Blood 10/25/2016 9:53 AM IMMIGRATION JUDGE Rasheeda Coronel M.D. LAB MICROBIOLOGY - BLOOD ORDERAB LES Final Result POWERCHART from Last 3 Months or Most Recently Relevant to Health Maintenance Insurance [facility] Care Teams Pile Driver Operator Barge Mounted Relationship Specialty Start Date End Date July Montalvo MPAS, P.A.-C. [address] [place] [phone] PCP - General Internal Medicine 11/08/22
--- OUTSIDE RECORDS SUMMARY | 2024-10-03 12:38 | XMS_ITS | Clinical Summary ---
Author Organization [employer] [facility] Address [place], [place] [address] Care Team Providers Care Terrazzo Tile Setter Name Role Phone Rasheeda Coronel Primary Care Provider Allergies No known active allergies Medications Medication Sig Dispensed Refills Start Date End Date Status ACETAMINOPHEN (TYLENOL ORAL) Take 500 mg by mouth every 4 hours if needed. Active aspirin (ECOTRIN) 81 mg enteric coated tablet Take 1 Tab by mouth once daily. AT BEDTIME 10/20/2010 Active Active Problems No known active problems Family History Medical History Relation Name Comments Cancer-colon Mother Relation Name Status Comments Mother Social History Tobacco Use Types Packs/Day Years Used Date Smoking Tobacco: Never Smokeless Tobacco: Never Alcohol Use Standard Drinks/Week Comments No 0 (1 standard drink = 0.6 oz pur e alcohol) occasionally Sex and Gender Information Value Date Recorded Sex Assigned at Not on file Gender Identity Not on file Sexual Orientation Not on file Obstetrics History Last Filed Vital Signs Vital Sign Reading Time Taken Comments Blood Pressure 145/97 07/29/2019 10:15 AM CDT Pulse 57 07/29/2019 10:15 AM CDT Temperature 36.6 C (97.9 F) 07/29/2019 8:36 AM CDT Respiratory Rate 16 07/29/2019 9:30 AM CDT Oxygen Saturation 95% 07/29/2019 10:15 AM CDT Inhaled Oxygen Concentration - - Weight 99.3 kg (219 lb) 07/29/2019 8:36 AM CDT Height 170.2 cm (5' 7) 07/29/2019 8:36 AM CDT Body Mass Index 34.3 07/29/2019 8:36 AM CDT Plan of Treatment Health Maintenance Due Date Last Done Comments Tdap 1975 Depression screening for age 12+ 1976 HIV for age 15-65 1979 BMI (ht and wt on same day) for age 18+ 1982 Hepatitis C screening for ag e 18-79 1982 Tetanus booster 1984 Lipids for age 45-75 2009 Zoster (shingles) series for age 50+ (1 of 2) 2014 COVID-19 vaccine series (2023- season) 2024 Influenza for age 50-64 07/14/2024 Colonoscopy through age 75 07/29/2029 07/29/2019 Pneumococcal series for age 6-64 Aged Out No longer eligible based on patient's age to complete this topic Procedures Procedure Name Priority Date/Time Associated Diagnosis Comments COLONOSCOPY 07/29/2019 8:55 AM CDT from Last 3 Months or Most Recently Relevant to Health Maintenance Results * COLONOSCOPY (07/29/2019 8:55 AM CDT) 07/29/2019 8:55 AM CDT Narrative Transcriptions Geronimo Allred MD - 07/29/2019 9:30 AM CDT Patient Name: Lei Vela Procedure Date: 07/29/2019 Gender: Male Date of : 1965 Admit Type: Ambulatory Procedure: Colonoscopy Proceduralist: Lazaro Allred [facility] Indications/Pre-Op Diagnosis: Colon cancer screening in patient atincreased risk: Colorectal cancer in mother Medications: Propofol per Anesthesia Procedure Description: The patient had risks, benefits and alternatives explained to andgave informed consent. The patient had a stable cardiopulmonary status and judged an adequate candidate for conscious sedation. The colonoscope was passed through the anus and advanced to thececum, identified by appendiceal orifice and ileocecal valve. Thecolonoscopy was performed without difficulty. The patient tolerated the procedure well. The quality of the bowel preparation was evaluated using theBBPS ([place] Bowel Preparation Scale) with scores of: Right Colon = 3, Transverse Colon = 3 and Left Colon = 3 (entire mucosa seen well withno residual staining, small fragments of stool or opaque liquid). Thetotal BBPS score equals 9. Complications: No immediate complications. Estimated Blood Loss & Specimen: Estimated blood loss: none. Specimen collected - Yes and sent to Laboratory Findings: The perianal and digital rectal examinations were normal. A 6 mm polyp was found in the recto-sigmoid colon. The polyp was sessile. The polyp was removed with a cold snare. Resection and retrieval were complete. Impressions/Post-Op Diagnosis: - One 6 mm polyp at the recto-sigmoid colon, removed with a coldsnare. Resected and retrieved. Recommendation: - Telephone my office for pathology results in 1 week. Lazaro Chalino, 07/29/2019 9:30:06 AM This report has been signed electronically. Note Initiated On: 07/29/2019 8:55 AM Geronimo Allred MD PROCEDURE ORD from Last 3 Months or Most Recently Relevant to Health Maintenance Advance Directives * Full Code (Latest Code Status on File) Date Activated Date Inactivated Comments 07/29/2019 8:55 AM 07/29/2019 12:53 PM * Full Code Date Activated Date Inactivated Comments 08/04/2014 9:28 AM 08/04/2014 1:45 PM Care Teams Terrazzo Tile Setter Relationship Specialty Start Date End Date Rasheeda Coronel MBBS PCP - General Internal Medicine 08/01/14
--- OUTSIDE RECORDS SUMMARY | 2024-10-03 12:38 | XMS_ITS ---
Author Organization [facility] Address [address] [place] [address] Care Team Providers Care Remote Advisor Name Role Phone Unavailable Unavailable Unavailable Surgery Details Not on file Complications Check Surgery Details section. Procedure Estimated Blood Loss Check Surgery Details section. Procedure Findings Check Surgery Details section. Procedure Specimens Taken Check Surgery Details section.
--- OUTSIDE RECORDS SUMMARY | 2024-10-03 12:38 | XMS_ITS | Encounter Summary ---
Author Organization [facility] Address [address] [place] [address] Care Team Providers Care White Sugar Boiler Name Role Phone July Montalvo, P.A.-C. Primary Care Pro vider Reason for Visit * Reason Comments Pre-op Exam Bilateral hip replac ement 09/26/24 Dr. Go; fax info to [phone] * Appointment Request (Routine) - Closed Specialty Diagnoses / Procedures Referred By Aliza t Referred To Contact [facility] Referral ID Status Reason Start Date Expiration Date Visits Re quested Visits Authorized [id number] Closed 07/17/2024 07/17/2025 1 1 Encounter Details Date Type Department Care Team (Latest Contact Info) Description 09/20/2024 10:00 AM REJECT OPENER Office Visit Department of [facility] in [place], [place] [address] [place] [phone] July Montalvo MPAS, P.A.-C. [address] [place] [phone] Preanesthetic Medical Exam (Primary Dx); Hypertension Essential Primary; Hyperlipidemia Social History Tobacco Use Types Packs/Day Years Used Date Smoking Tobacco: Never Smokeless Tobacco: Never Tobacco Cessation:Counseling Given: Not Answered Alcohol Use Standard Drinks/Week Comments Yes 1 (1 standard drink = 0.6 oz pur e alcohol) Occasional. [facility] Utilities Answer Date Recorded In the past 12 months has [employer], gas, oil, or water [employer] threatened to shut off services in your [...] 02/05/2022 How often do you attend chur or sikh services? 1 to 4 times per year 02/05/2022 Do you belong to any clubs o r organizations such as jainism groups, unions, fraternal or athletic groups, or [...] Answer Date Recorded PHQ-2 Score 0 12/20/2023 Citizen Of [place] [facility] Occupat ional Health - Occupational Stress [...] your living situation today? I have a [facility] place to live 07/10/2024 Education Answer Date Recorded What is the highest level of school you have completed or the highest degree you have received? Associate degree: academic program 06/26/2019 Sex and Gender Information Value Date Recorded Sex Assigned at Male 10/17/2021 7:57 PM REJECT OPENER Legal Sex Male 9:24 AM REJECT OPENER Gender Identity Male 09/23/2017 10:27 AM REJECT OPENER Sexual Orientation Straight 09/23/2017 10 :27 AM REJECT OPENER Occupation Industry Job Start Date Job End Date [employer] Not on file Not on file Not on file documented as of this encounter Last Filed Vital Signs Vital Sign Reading Time Taken Comments Blood Pressure 166/109 09/20/2024 9:58 AM REJECT OPENER patient is in pain Pulse 71 09/20/2024 9:58 AM REJECT OPENER Temperature 35.9 C (96.6 F) 09/20/2024 9:54 AM REJECT OPENER Respiratory Rate 16 09/20/2024 9:54 AM REJECT OPENER Oxygen Saturation 97% 09/20/2024 9:5 8 AM REJECT OPENER Inhaled Oxygen Concentration - - Weight 103 kg (226 lb 11.9 oz) 09/20/2024 9:54 AM REJECT OPENER Height - - Body Mass Index 33.2 07/17/2024 8:24 AM CDT documented in this encounter H&P Notes * July Montalvo MPAS, P.A.-C. - 09/20/2024 10:00 AM CST PREANESTHETIC MEDICAL EVALUATION Procedure: Bilateral total hip arthroplasty Date of Surgery: 09/26/2024 Requesting Provider: Dr. Donavan Kong. SUBJECTIVE HISTORY OF PRESENT ILLNESS Lei Vela is a 59 y.o. male seen in consultation for a preanesthetic medical evaluation.He has a past medical history of hypertension, hyperlipidemia, obesity, and Ray's thyroiditis. His blood pressure is elevated in the office which is consistent with previous clinic visits. He re ports better controlled blood pressure at home in the 130s/80s. He has previously declined statin therapy for hyperlipidemia management. He has subclinical hypothyroidism from Ray's. Patient currently denies Shortness of breath, Wheezing or coughing, Difficulty breathing when lyingflat, Waking up at night feeling short of breath, Edema - abdominal bloating, and Edema - lower extremities. Procedure cardiac risk: Intermediate Risk (cardiac risk <5%): CEA, head/neck surgery, intraabdominal or intrathoracic surgery, orthopedic surgery, prostate surgery Functional status: Functional Class II: Able to perform 5-7 METS (walk > 4 blocks or climb over 2 flights without cardiac or pulmonary Sx) RCRI estimated risk of yi-operative cardiac , non-fatal NE, or non-fatal cardiac arrest: None RCRI risk: 0 Predictors (0.4% risk of major cardiac event) He does not have a history of coronary artery disease, heart failure, cardiac arrhythmias, liver disease, kidney disease, or obstructive sleep apnea. No personal history of venous thromboembolism. PREOPERATIVE CONSIDERATIONS Anesthesia complications, personal or family members: reports patient has to be reminded to breathe when awakening from anesthesia. PAST MEDICAL HISTORY Past Medical History: Diagnosis Date Cancer Colon Family History 10/30/2017 His mother had stage IV colon cancer at age of 60. Elevated Blood Pressure Without Hypertension 10/25/2016 Elevated Thyroid Stimulating Hormone 11/02/2018 Family History Heart Disease 04/08/2016 Hyperlipidemia 10/25/2016 Hypertriglyceridemia 10/25/2016 Lipoma Skin 12/30/2012 Mass Neck 01/23/2017 Polyp Colon Sept. 2018 PAST SURGICAL HISTORY Past Surgical History: Procedure Laterality Date CIRCUMCISION COLONOSCOPY 08/04/2014 Repeat in 5 years due to family history of colon cancer. [address] COLONOSCOPY 03/01/[address] COLONOS[address] W/ POLYPECTOMY 07/29/2019 Repeat in 5 years. Tubular adenoma colon polyp. LASER ASSISTED IN SITU KERATOMILEUSIS NASAL SEPTOPLASTY 08/10/2007 With adenoidectomy and turbinate reduction TONSILLECTOMY 2008 VASECTOMY 2002 OBJECTIVE PHYSICAL EXAM Vitals: BP (!) 166/109 (BP Location: Right arm, Patient Position: Sitting, Cuff Size: Large) Comment: patient is in pain Pulse 71 Temp (!) 35.9 ??C (Temporal) Resp 16 Wt 103 kg SpO2 97% BMI 33.20 kg/m?? Constitutional General: He is not in acute distress. Appearance: Normal appearance. HENT Head: Normocephalic and atraumatic. Right Ear: Tympanic membrane normal. Left Ear: Tympanic membrane normal. Mouth/Throat: Mouth: Mucous membranes are moist. Pharynx: Oropharynx is clear. No oropharyngeal exudate or posterior oropharyngeal erythema. Eyes Extraocular Movements: Extraocular movements intact. Conjunctiva/sclera: Conjunctivae normal. Pupils: Pupils are equal, round, and reactive to light. Neck Vascular: No carotid bruit. Cardiovascular Rate and Rhythm: Normal rate and regular rhythm. Heart sounds: Normal heart sounds. No murmur heard. No gallop. Pulmonary Effort: Pulmonary effort is normal. No respiratory distress. Breath sounds: Normal breath sounds. No wheezing, rhonchi or rales. Abdominal General: Bowel sounds are normal. There is no distension. Palpations: Abdomen is soft. Tenderness: There is no abdominal tenderness. There is no guarding or rebound. Musculoskeletal Cervical back: Neck supple. Right lower leg: No edema. Left lower leg: No edema. Skin General: Skin is warm and dry. Neurological General: No focal deficit present. Mental Status: He is alert and oriented to person, place, and time. Motor: No weakness. Deep Tendon Reflexes: Reflexes normal. Psychiatric Mood and Affect: Mood normal. Behavior: Behavior normal. Thought Content: Thought content normal. LABORATORY STUDIES/EKG/Radiology: Lab Results Component Value Date WBC 8.3 09/20/2024 HGB 16.2 09/20/2024 HCT 47.0 09/20/2024 MCV 88.3 09/20/2024 PLT 283 09/20/2024 Lab Results Component Value Date NA 141 07/17/2024 Lab Results Component Value Date KPLASMA 4.5 07/17/2024 Lab Results Component Value Date CREATININE 1.06 07/17/2024 Lab Results Component Value Date GLUCOSE CANCELED 07/17/2024 GLUCOSE 92 07/17/2024 ASSESSMENT / PLAN ASSESSMENT / PLAN #1 Preanesthetic Medical Examination Lei Vela is considered a moderate risk patient undergoing a moderate risk procedure. His physical activity is currently above 4 mets and he currently declines any issues. He has been instructed to hold NSAID medications prior to his procedure by his Orthopedic team. For hip pain management until this procedure, I recommend Tylenol 1000 mg 4 x daily. If he would like stronger pain medication until his procedure I ask that he request this from his Orthopedic team. We will update a CBCtoday prior to surgery. #2 White Coat Hypertension He has a history of white coat hypertension in clinic. He has previously reported well controlled blood pressures at home around 130/80s. #3 Hyperlipidemia Patient previously declined statin therapy. Continue to monitor with annual labs. No medical contraindication to anticipated surgery. Total time spent: 30 minutes. BOB Salcedo, P.A.-C. CT OPENER documented in this encounter Plan of Treatment Not on file documented as of this encounter Results * (ABNORMAL) CBC with Differential, Blood (09/20/2024 10:33 AM REJECT OPENER) Hemoglobin 16.2 13.2 - 16.6 g/dL 09/20/2024 10:40 AM REJECT OPENER FB60 Hematocrit 47.0 38.3 - 48.6 % 09/20/2024 10:40 AM REJECT OPENER FB60 Erythrocytes 5.32 4.35 - 5.65 x10(12)/L 09/20/2024 10:40 AM REJECT OPENER FB60 MCV 88.3 78.2 - 97.9 fL 09/20/2024 10:40 AM REJECT OPENER FB60 RBC Distrib Width 12.1 11.8 - 14.5 % 09/20/2024 10:40 AM REJECT OPENER FB60 Platelet Count 283 135 - 317 x10(9)/L 09/20/2024 10:40 AM REJECT OPENER FB60 Leukocytes 8.3 3.4 - 9.6 x10(9)/L 09/20/2024 10:40 AM REJECT OPENER FB60 Neutrophils 5.03 1.56 - 6.45 x10(9)/L 09/20/2024 10:40 AM REJECT OPENER FB60 Lymphocytes 2.18 0.95 - 3.07 x10(9)/L 09/20/2024 10:40 AM REJECT OPENER FB60 Monocytes 0.93(H) 0.26 - 0.81 x10(9)/L 09/20/2024 10:40 AM REJECT OPENER FB60 Eosinophils 0.15 0.03 - 0.48 x10(9)/L 09/20/2024 10:40 AM REJECT OPENER FB60 Basophils <0.04 0.01 - 0.08 x10(9)/L 09/20/2024 10:40 AM REJECT OPENER FB60 Blood (Blood, Venous) 09/20/2024 10:33 AM REJECT OPENER 09/20/2024 10:33 AM REJECT OPENER us July ROJAS, P.A.-C. LAB BLOOD ADD-ON Final Result [facility] [address] [place] [address], [facility] FB60 [facility] [place] [address] [place] [address] documented in this encounter Visit Diagnoses Diagnosis Preanesthetic Medical Exam- Primary Hypertension Essential Primary Hyperlipidemia documented in this encounter Additional Health Concerns Assessment Noted Time PHQ-9 Depression Total Score: 0 11/02/20 18 2:45 PM REJECT OPENER documented as of this encounter Care Teams White Sugar Boiler Relationship Specialty Start Date End Date July Montalvo MPAS, P.A.-C. [address] [place] [phone] PCP - General Internal Medicine 11/08/22 documented as of this encounter
--- OUTSIDE RECORDS SUMMARY | 2024-10-03 12:38 | XMS_ITS | Encounter Summary ---
Author Organization [facility] Address [address] [place] [id number] Care Team Providers Care Stamps Or Coins Salesperson Name Role Phone July Montalvo P.A.-C. Primary Care Pro vider Reason for Referral * Outpatient (Routine) - Authorized Specialty Diagnoses / Procedures Referred By Contac t Referred To Contact Pain Medicine Diagnoses Pain Back Lumbar Suni Leon M.D. [address] [place] [phone] Phone: tel: fax: [facility] Referral ID Status Reason Start Date Expiration Date V isits Requested Visits Authorized [id number] Authorized 07/08/2024 01/07/2026 1 1 Scheduling Instructions Schedule AFTER 08/26/[address] Leon is supervising clinic. For BVN consideration. Ok by Dr. Leon. * Physical Therapy (Routine) - Authorized Specialty Diagnoses / Procedures Referred By Contac t Referred To Contact Physical Therapy Diagnoses Pain Hip Bilateral Pain Back Lumbar Elaine Coles APRN, C.N.P., D.N.P. [address] [place] [phone] Phone: tel: fax: Referral ID Status Reason Start Date Expiration Date Visits Requested Visits Authorized [id number] Authorized Patient Preference 07/08/2024 01/07/2026 1 1 * Outpatient (Routine) - Authorized Specialty Diagnoses / Procedures Referred By Contac t Referred To Contact Orthopedic Surgery Diagnoses Pain Hip Bilateral Elaine Coles APRN C.N.POmer, D.N.P. [address] [place] [phone] Phone: tel: fax: [facility] Referral ID Status Reason Start Date Expiration Date V isits Requested Visits Authorized [id number] Authorized 07/08/2024 01/07/2026 1 1 Scheduling Instructions Ortho internal referral panel order, imaging before Consult visit * Outpatient (Routine) - Closed Specialty Diagnoses / Procedures Referred By Contac t Referred To Contact Diagnoses Pain Hip Bilateral Procedures DX Hips and Pelvis Bilateral 5+ Views Elaine Coles APRN, C.N.POmer, D.N.P. [address] [place] [phone] Phone: tel: fax: [facility] Referral ID Status Reason Start Date Expiration Date Visits Re quested Visits Authorized [id number] Closed 07/08/2024 07/08/2025 1 1 Reason for Visit * Outpatient (Routine) - Closed Specialty Diagnoses / Procedures Referred By Contac t Referred To Contact Spine Elaine Coles APRN, C.N.POmer, D.N.P. [address] [place] [phone] Phone: tel: fax: [facility] Referral ID Status Reason Start Date Expiration Date Visits Re quested Visits Authorized [id number] Closed 04/17/2024 10/17/2025 1 1 Encounter Details Date Type Department Care Team (Latest Contact Info) Description 07/08/2024 11:00 AM CDT Comprehensive Visit Department of Spine in [place], [place] [address] [place] [phone] Martina Ch APRN C.N.P., M.S.N. [address] [place] [phone] lEaine Coles APRN, C.NAaron, D.N.P. [address] [place] [phone] Pain Hip Bilateral (Primary Dx); Pain Back Lumbar Social History Tobacco Use Types Packs/Day Years Used Date Smoking Tobacco: Never Smokeless Tobacco: Never Alcohol Use Standard Drinks/Week Comments Yes 1 (1 standard drink = 0.6 oz pur e alcohol) Occasional. Humiliation, Afraid, Rape, and Kick questionnair e [...] often do you attend chur ch or sabianism services? 1 to 4 times per year 02/05/2022 Do you belong to any clubs o r organizations such as mandaen groups, unions, fraternal or athletic groups, or [...] Answer Date Recorded PHQ-2 Score 0 12/20/2023 [facility] - Occupational Stress Questionnaire Answer Date Recorded [...] exercise (like a brisk walk)? 7 days 06/27/2023 On average, how many minutes do you engage in exercise at this level? 60 min 06/27/2023 Hunger Vital Sign Answer Date Recorded Within the past 12 months, y ou worried that your food would run out before you got the money to buy more. Never true 06/27/20 23 Within the past 12 months, t he food you bought just didn't last and you didn't have money to get more. Never true 06/27/2023 PRAPARE - Transportation Answer Date Re corded In the past 12 months, has l ack of transportation kept you from medical appointments or from getting medications? No 06/13 In the past 12 months, has l ack of transportation kept you from meetings, work, or from getting things needed for daily living? No 06/27/2023 Nutrition Answer Date Recorded On average, how many serving s of fruits and vegetables do you eat per day (serving size is equal to 1 cup or approximately the size of a tennis ball)? 0-2 06/27/2023 Dental Answer Date Recorded Dental: Regular Dentist Yes 01/01/20 21 Employment Answer Date Recorded Employment status Employed and actively working without restrictions 06/27/2023 Housing Stability Answer Date Recorded What is your living situation today? I have a [facility] place to live 06/27/2023 Education Answer Date Recorded What is the highest level of school you have completed or the highest degree you have received? 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 - 07/08/2024 11:00 AM CDT REASON FOR CONSULT A return visit SUBJECTIVE Follow-up visit HISTORY OF PRESENT ILLNESS Mr. Lei Vela is a 58 y.o. male who presents today accompanied by his hip for a return visit and the initial visit on 04/17/2024. I would like to refer the interested readers to the initial note. He reports 95% better for 2 days with lumbar L5 TFESI on 05/08/2024 and 95% better for 2 days with bilateral SIJ injection on 06/03/2024. He reports pain worsening with walking and standing > 5 minutes. He reports his left hip, left groin, left thigh anterolateral deep aching pain is his primary concern at this time. He had overused his left hip by digging a hole in 2021 and had a fall landed onhis right hip with great pain in November 2023. 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 patient describes pain as follows: Low Back Pain: Currently Rate: 8/10 Symptom Distribution: Back: 75% low back, bilateral buttocks/gluteal and bilateral hips, LEFT greater than RIGHT BLE: 25% BLE lateral down to top of B feet (occasionally 2nd&3rd toes of B feet), B thighs anterior above the knee. L>R Symptom Duration: Constant, intensity varies Symptom Onset: Back pain: 30 years ago work-related back injury (work comp); LLE lateral and L thigh anterior: 03/2022; RLE lateral and R thigh anterior: Patient reports he fell off a ladder and twisthis back In November 2023, a few days after his RLE lateral and B thighs pain started. Characteristics: deep Aching , dull, tightness, intermittent top of B feet occasionally 2nd&3rdtoes of B feet numbness/tingling Aggravating Factors: Walking, standing, bending, lifting, sitting, getting up from sitting, lying down Relieving Factors: Rest, pain meds, changing positions Numbness/Tingling: REPORTS intermittent top of B feet occasionally 2nd&3rd toes of B feet numbness/tingling Weakness: DENIES Bowel/Bladder dysfunction: DENIES Home Pain Medications: Acetaminophen 1000 mg qd Aspirin 975 mg BID-TID Prior Conservative Interventions: Physical Therapy: 13 years ago Chiropractor: Ongoing helpful Acupuncture: Ongoing helpful Prior Interventional Pain Procedures: Patient reports had lumbar SEUN around 2011 without much improvements Prior Related Surgery Denies MEDICAL HISTORY, SURGICAL HISTORY, FAMILY/SOCIAL HISTORY The portions of the patient's history were reviewed: medical history, problem list, family history,allergies, and social history in the EMR. Medical History Past Medical History: Diagnosis Date Cancer Colon Family History 10/30/2017 His mother had stage IV colon cancer at age of 60. Elevated Blood Pressure Without Hypertension 10/25/2016 Elevated Thyroid Stimulating Hormone 11/02/2018 Family History Heart Disease 04/08/2016 Hyperlipidemia 10/25/2016 Hypertriglyceridemia 10/25/2016 Lipoma Skin 12/30/2012 Mass Neck 01/23/2017 Polyp Colon 2018 OBJECTIVE PHYSICAL EXAM GENERAL: NAD MENTAL: A/Ox3. Appropriate mood and affect. CARDIAC: Well perfused. LUNGS: Unlabored respirations. GAIT: Able to heel and toe walk without difficulty. Tandem gait with some difficulty. MUSCULOSKELETAL: Low Back Integumentary: Dry and intact to affected site. Palpate: TTP at midline or in paraspinal musculature of lower back. No TTP over bilateral SIJ. No TTP over greater trochanters. ROM: Limited flexion and extension of the lumbar spine with pain. Lumbar extension/rotation is significant and associated with increasing pain. Limited ROM of bilateral hips by guarding and muscle tightness. Neuro: Motor: 5/5 strength throughout BLE. Sensation: SILT throughout BLE. Reflexes: DTRs are decreased but symmetric at patella bilaterally. Provocative Maneuvers: Romberg's: +/- Facet maneuvers: Positive SLR Negative KRISTIN Test: Positive Stinchfield Positive bilaterally Log rolling test: Positive bilaterally DIAGNOSTICS IMAGING Personally reviewed imaging studies and explained the relevant findings to the patient with formal read as following. MR LUMBAR SPINE WITHOUT IV CONTRAST 01/25/24 IMPRESSION: 1. Moderate degenerative lumbar spondylosis affects discs and facet joints. 2. Developmentally short lumbar pedicles. 3. At L3-4, the already exited left L3 nerve root is contacted in the far lateral extra foraminal space. Correlate with left L3 radiculopathy. 4. At L5-S1, the right L5 nerve root is contacted in the neural foramen and right far lateral extraforaminal space. Correlate with right L5 radiculopathy. DX LUMBAR SPINE 2-3 VIEWS 12/25/23 IMPRESSION: Comparison 08/15/2022 without significant interval change.. Diffuse osseous demineralization. Mild right convex curvature centered about L2- 3. Moderate degenerative disc disease L2-3. Multilevel moderate facet arthropathy. Preserved vertebral body heights. 2 mm retrolisthesis of L2 on L3 and L5 on S1, likely on a degenerative basis. Sagittal alignment is preserved at the remaining levels. Relatively preserved lordosis. Mild hypertrophic degenerative change sacroiliac joints. Partially imaged degenerative arthritis both hips. ASSESSMENT / PLAN ASSESSMENT # Pain Bilateral Hips - Orthopedics consultation referral # Chronic low back pain # Bilateral Gluteal pain # Bilateral lower extremity pain # Lumbar spondylosis RECOMMENDATIONS/MEDICAL DECISION MAKING It was my pleasure to meet Lei Vela today. Dr. Leon and I evaluated the patient in the clinic today. We discussed with the patient it appears to have lumbar spondylosis with radicular symptoms, bilateral hip pain, facetogenic pain, Modic changes most prominent at L5-S1. Patient has limited ROM and muscle tightness. We recommended physical therapy to see if it help improve his ROM and External PT order is provided to the patient. Given his history and hip physical examination, we consider referring the patient to Orthopedics and bilateral hip DX is ordered for the consultation. Patient is encourage to reach out to the [facility] if symptoms worsen or unimproved despite the implem entation of stated plan. Imaging/ diagnostics: - Can consider EMG/NCS in the future Conservative: - Physical therapy. ExPT order is provided to the patient. - Regular self-exercise at home: Remain active, activity modification to avoid pain triggers. - Ice/heat Interventions: - Can consider TFESI: Lumbar Spine Transforaminal Epidural steroid injections at LEFT L3. Medications: - consider trailing of OTC acetaminophen or NSAIDs such as Ibuprofen - Consider [id number] diclofenac 1% gel for the low back. Patient is not interested in any medications at this time. Follow-up: - Follow up: Patient will reach out to the [facility] if symptoms worsen or unimproved despite the implementation of stated plan. Dr. Leon also would like to have the patient evaluated by pain medicine for pain management including evaluating the patient to see if the patient will be a candidate for BVN. Patient is aware I am unable to see him back but other provider on the team will take good care of him. Referrals: - Orthopedic Hip consultation referral: Given patient's clinical presentation and hip exams, hip problems can be one of contributors to his symptoms. I do believe he should have his hips evaluated. PATIENT EDUCATION The assessment and treatment plans/recommendations were explained in detail. All questions were answered. The patient is in agreement with the stated plan. BILLING I personally spent 68 minutes in the care of the patient today. This includes chart review, [id number] time, care coordination, and documentation. Signed by: Elaine Coles APRN, C.N.P., D.N.P. documented in this encounter H&P Notes * Suni Leon M.D. - 07/08/2024 11:00 AM CDT Images from the original note were not included. Supervisory Note This is a supervisory note. I have personally seen and evaluated the patient. Their documentation should be included as part of my own for billing and clinical care. Briefly, Mr. Vela is a 58 year old male with history notable for HTN, HLD who presents today for follow up visit for assessment/evaluation of low back pain with radiation into the bilateral gluteal and legs. He was last seen virtually on 05/29/2024 and since has undergone bilateral SI joint injection. He reports today great relief for only about 2 days. This was also the same case for the bilateral L5 TFESI performed on 05/08/24. He reports that pain is worse at the right side low back, around the PSIS and SI joint. It radiatesdown the gluteal area into the lower leg (posterior aspect). 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 He also reports worsen pain with putting on shoes and being on his knees in flexed position. Pain usually starts to begin at the 1 hour vira. No numbness, tingling, or burning sensation. No saddle anesthesia. No weaknesses. He reports a fall on his right side that since has resulted in right hip pain. He has always been a stiff/tight muscle nicki with very limited flexibility. He has tried minimal rehab but has not been able to do it for long. Exam was very limited due to minimal lumbar spine range of motion. Spine extension was at best 25-30 degrees. Flexion was much better, able to touch shins. Hip rotation limited by guarding and muscletightness. No pain with palpation along the troch bursa bilaterally. I think his lower back pain may be related to a few etiologies including recent trauma resulting inright hip pain, hip OA related pain. degenerative disc disease most prominent at L5-S1 with Modic type 2 changes, facet arthropathy related pain, sacroiliitis, and possibly radiculitis vs radiculopathy. Given failed 2 injections, will defer injections for now. I will have him see our orthopedics team to further evaluate possible hip pain. I will also recommend starting and trying to do formal physical therapy for 6-8 weeks at minimal to see if it can improve pain as well as range of motion. Shouldthis fail to improve I will have him follow up with with me in Pain Medicine for further evaluationfor anterior column pain for possible consideration of BVN procedure. Other things to consider Sacral LBB since he did get good relief from bilateral SI injection. Patient denies fever, infection, weakness, saddle anesthesia, bowel or bladder incontinence. Patient is in agreement with the stated plan. MRI lumbar spine T2 Sag view (Right side) Suni Leon MD Pain Medicine Data Management documented in this encounter Plan of Treatment Scheduled Referrals Name Type Priority Associated Diagnoses Order Schedule Orthopedic Surgery - Hip (no prior replacement ) surgical consult (clinic) Outpatient Referral Routine Pain Hip Bilateral Expected: 07/08/2024 (Approximate), Expires: 10/08/2025 Pain Medicine - Spine consult (clinic) Outpatient Referral Routine Pain Back Lumbar Expected: 08/26/2024, Expires: 10/08/2025 documented as of this encounter Results * DX Hips and Pelvis Bilateral 5+ [...] advanced hip osteoarthritis with underlying hip dysplasia. Elaine Coles APRN, C.N.P., D.N.P. IMG DIAGNOSTIC IMAGING PROCEDURES Final Result documented in this encounter Visit Diagnoses Diagnosis Pain Hip Bilateral- Primary Pain Back Lumbar Pain Hip Bilateral documented in this encounter Additional Health Concerns Assessment Noted Time PHQ-9 Depression Total Score: 0 11/02/20 18 2:45 PM SUBSTATION ELECTRICIAN SUPERVISOR documented as of this encounter Care Teams Stamps Or Coins Salesperson Relationship Specialty Start Date End Date July Montalvo MPAS, P.A.-C. [address] [place] [phone] PCP - General Internal Medicine 11/08/22 documented as of this encounter
--- OUTSIDE RECORDS SUMMARY | 2024-10-03 12:38 | XMS_ITS | Encounter Summary ---
Author Organization [facility] Address [address] [place] [id number] Care Team Providers Care Fishing Vessel Mate Name Role Phone July Montalvo P.A.-C. Primary Care Pro vider Reason for Referral * Outpatient (Routine) - Closed Specialty Diagnoses / Procedures Referred By Contac t Referred To Contact Diagnoses Pain Hip Bilateral Procedures DX Hips and Pelvis Bilateral 5+ Views Elaine Coles APRN, C.N.P., D.N.P. [address] [place] [phone] Phone: tel: fax: [facility] Referral ID Status Reason Start Date Expiration Date Visits Re quested Visits Authorized [id number] Closed 07/08/2024 07/08/2025 1 1 Reason for Visit * Outpatient (Routine) - Closed Specialty Diagnoses / Procedures Referred By Contac t Referred To Contact Diagnoses Pain Hip Bilateral Procedures DX Hips and Pelvis Bilateral 5+ Views Elaine Coles APRN, C.N.P., D.N.P. [address] [place] [phone] Phone: tel: fax: [facility] Referral ID Status Reason Start Date Expiration Date Visits Re quested Visits Authorized [id number] Closed 07/08/2024 07/08/2025 1 1 Encounter Details Date Type Department Care Team (Latest Contact Info) Description 07/08/2024 1:43 PM CDT - 07/08/2024 11:59 PM CDT Hospital Encounter Department of Radiology, [facility], in [place], [place] [address] [place] [phone] Elaine Coles APRN, C.N.P., D.N.P. 200 [place] [phone] Pain Hip Bilateral Discharge Disposition: Home or Self Care Social History Tobacco Use Types Packs/Day Years [...] often do you attend chur ch or mu-ism services? 1 to 4 times per year 02/05/2022 Do you belong to any clubs o r organizations such as anabaptism groups, unions, fraternal or athletic groups, or [...] Answer Date Recorded PHQ-2 Score 0 12/20/2023 [facility] Occupat [facility] - Occupational Stress [...] living situation today? I have a [facility] place to live 06/27/2023 Education Answer Date Recorded What is the highest level of school you have completed or the highest degree you have received? 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 10/20/2010 documented as of this encounter Plan of Treatment Not on file documented as of this encounter Procedures Procedure Name Priority Date/Time Associated Diagnosis Comments DX HIPS AND PELVIS BILATERAL MINIMUM 5 VIEWS RAD - Routine (most inpatients and all outpatients) 07/08/2024 2:21 PM CDT Pain Hip Bilateral documented in this encounter Results * DX Hips and [...] this encounter Visit Diagnoses Diagnosis Pain Hip Bilateral documented in this encounter Additional Health Concerns Assessment Noted Time PHQ-9 Depression Total Score: 0 11/02/20 18 2:45 PM POLITICAL GEOGRAPHER documented as of this encounter Care Teams Fishing Vessel Mate Relationship Specialty Start Date End Date July Montalvo MPAS, P.A.-C. [address] [place] [phone] PCP - General Internal Medicine 11/08/22 documented as of this encounter
--- OUTSIDE RECORDS SUMMARY | 2024-10-03 12:38 | XMS_ITS | Encounter Summary ---
Author Organization [facility] Address [address] [place] [address] Care Team Providers Care Real Estate Sales Agent Name Role Phone July Montalvo P.A.-COmer Primary Care Pro vider Reason for Visit * Reason Comments Annual Exam Discuss colonoscopy Encounter Details Date Type Department Care Team (Latest Contact Info) Description 07/17/2024 8:40 AM CDT Comprehensive Visit Department of Community Internal Medicine in [place], [place] [address] [place] [address] July Montalvo MPAS P.A.-COmer [address] [place] [address] Cancer Colon Family History (Primary Dx); Hypertension Essential Primary; Hyperlipidemia; Family History Heart Disease; Elevated Thyroid Stimulating Hormone; Pain Low Back Chronic; Body Mass Index 32.0 To 32.9 Adult; General Medical Examination Adult Social History Tobacco Use Types Packs/Day Years Used Date Smoking Tobacco: Never Smokeless Tobacco: Never Tobacco Cessation:Counseling Given: Not Answered Alcohol Use Standard Drinks/Week Comments Yes 1 (1 standard drink = 0.6 oz pur e alcohol) Occasional. [facility] Utilities Answer Date Recorded In the past 12 months has e [employer], gas, oil, or water [employer] threatened to shut off services in your [...] often do you attend chur ch or rastafari services? 1 to 4 times per year 02/05/2022 Do you belong to any clubs o r organizations such as orthodox groups, unions, fraternal or athletic groups, or [...] Answer Date Recorded PHQ-2 Score 0 12/20/2023 [facility] [place] of Occupat ional Health - Occupational Stress [...] your living situation today? I have a [facility] place to live 07/10/2024 Education Answer Date Recorded What is the highest level of school you have completed or the highest degree you have received? 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 - 07/17/2024 8:40 AM CDT SUBJECTIVE CHIEF COMPLAINT / REASON FOR VISIT Annual Exam (Discuss colonoscopy) HISTORY OF PRESENT ILLNESS Lei Vela is a 58 y.o. male who presents today for annual medication review. His blood pressure is elevated in clinic today which is typical for him in the clinic setting. He periodically checks blood pressure at home and reports readings in the 130s/80s. [facility] following with [facility] [place]. It was recommended he complete physical therapy. He says he brought hip x-ray report to his chiropractor in [place] who did not feel he needed PT at this time. He has a follow up with Orthopedics ordered. He is currently taking three 325 mg aspirin every morning and two 325 mg aspirin before bed. He occasionally takes Tylenol duringthe day. He wonders about a colonoscopy order. He has a family history of colon cancer in mother who at age 60 for colon cancer. His sister was recently diagnosed with Hodgkin's lymphoma. He tries to be mindful of his diet. He feels he has been limited in ability to exercise due to painin back and hips. He feels he may have gained some weight due to inactivity. He continues to work to as [employer]. He has never smoked. Alcohol intake is minimal. He is . He has two daughters that are work as nurses. ALLERGIES Hydrochlorothiazide Past Medical History: Diagnosis Date Cancer Colon Family History 10/30/2017 His mother had stage IV colon cancer at age of 60. Elevated Blood Pressure Without Hypertension 10/25/2016 Elevated Thyroid Stimulating Hormone 11/02/2018 Family History Heart Disease 04/08/2016 Hyperlipidemia 10/25/2016 Hypertriglyceridemia 10/25/2016 Lipoma Skin 12/30/2012 Mass Neck 01/23/2017 Polyp Colon Jul. 2018 Past Surgical History: Procedure Laterality Date CIRCUMCISION COLONOSCOPY 08/04/2014 Repeat in 5 years due to family history of colon cancer. [address] COLONOSCOPY 03/01/[address] COLONOSCOPY W/ POLYPECTOMY 07/29/2019 Repeat in 5 years. Tubular adenoma colon polyp. LASER ASSISTED IN SITU KERATOMILEUSIS NASAL SEPTOPLASTY 08/10/2007 With adenoidectomy and turbinate reduction TONSILLECTOMY 2007 VASECTOMY 2002 Family History Problem Relation Name Age of Onset Stroke Mother Ciarra Vela Deep vein thrombosis Mother Ciarra Vela Colon polyps Mother Ciarra Vela Colon cancer Mother Ciarra Vela Stroke Father Casey Vela Atrial fibrillation Father Casey Vela Heart failure Father Casey Vela Coronary artery disease Father Casey Vela Gout Father Casey Vela Cataracts Father Casey Vela End stage renal disease Father Casey Vela Hypertension Father Casey Vela Other (Heart attack, age 70) Father Casey Vela Colon polyps Sister Key Vela Hodgkin's lymphoma Sister Key Vela OBJECTIVE Blood pressure (!) 165/109, pulse 71, temperature 36 ??C, temperature source Temporal, resp. rate 16, height 176 cm, weight 103 kg, SpO2 95%. PHYSICAL EXAMINATION Constitutional General: He is not in acute distress. Appearance: Normal appearance. HENT Head: Normocephalic and atraumatic. Right Ear: Tympanic membrane normal. Left Ear: Tympanic membrane normal. Mouth/Throat: Mouth: Mucous membranes are moist. Pharynx: Oropharynx is clear. No oropharyngeal exudate or posterior oropharyngeal erythema. Eyes Extraocular Movements: Extraocular movements intact. Conjunctiva/sclera: Conjunctivae normal. Pupils: Pupils are equal, round, and reactive to light. Cardiovascular Rate and Rhythm: Normal rate and [...] General: Skin is warm and dry. Neurological Mental Status: He is alert and oriented to person, place, and time. Motor: No weakness. Deep Tendon Reflexes: Reflexes normal. Psychiatric Mood and Affect: Mood normal. Behavior: Behavior normal. Thought Content: Thought content normal. ASSESSMENT / PLAN #1 Hypertension Essential Primary He has white coat hypertension. He monitors blood pressure at home (home blood pressure device deemed accurate in 2021 at nurse visit) with readings averaging in 130s/80s. I have strongly encouraged him to continue monitoring blood pressure at home and notify us if blood pressure reading is consistently greater than 140/90. He is in agreement with this plan. #2 Hyperlipidemia History of hyperlipidemia. Previously declined statin when recommended by Dr. Coronel in 2019 per chart review. I had recommended statin therapy after lipid panel drawn March 2022 which was not pursued. We will update a lipid panel today. Unless he has had a significant change in cholesterol since this was last checked, we will likely again recommended statin therapy or alternative such as Zetia if hedeclines statin therapy. #3 Family History Heart Disease Family history of heart disease in father. We discussed the importance of modifying risk factors such as hypertension and hyperlipidemia to prevent a cardiovascular and/or vascular event. #4 Elevated Thyroid Stimulating Hormone #5 Thyroiditis Ray's History of elevated thyroperoxidase antibodies and abnormal TSH. We will check thyroid function cascade today. - Thyroid Function [place]; Future; Expected date: 07/17/2024 #6 Pain Low Back Chronic #7 Hip Pain Bilateral He had a recent clinic visit with [facility] [place] for his back. He reportedly did not respond to transforaminal epidural injection (April 2024). He is currently planning to defer physical therapy for his back as he works with his chiropractor. He has an Orthopedic consult ordered for his hip pain which he will plan to get scheduled. #8 Body Mass Index 32.0 To 32.9 Adult He is planning to become more physically active as hip and back pain improve. #9 Cancer Colon Family History #10 General Medical Examination Adult He has a family history of colon cancer in a first-degree relative (mother). Last colonoscopy completed in 2019 with a recommended 5 year follow-up. Colonoscopy has been ordered in [place] today. Hewill have PSA drawn after our clinic visit today for prostate cancer screening. I encouraged Shingrex vaccine at local pharmacy. He declines COVID vaccine. Total time spent: 40 minutes. July Montalvo PA-C documented in this encounter Plan of Treatment Not on file documented as of this encounter Results * (ABNORMAL) Thyroid Function [place] (07/17/2024 9:15 AM CDT) TSH, Sensitive 4.8(H) 0.3 - 4.2 mIU/L 07/17/2024 1:42 PM CDT OWAT Blood (Blood, Venous) 07/17/2024 9:15 AM CDT 07/17/2024 1:01 PM CDT us July ROJAS, P.A.-C. LAB BLOOD ADD-ON Final Result [facility] [address] [place] [address], [facility] OWAT [facility] [place] [address] [place] [address] documented in this encounter Visit Diagnoses Diagnosis Cancer Colon Family History- Primary Hypertension Essential Primary Hyperlipidemia Family History Heart Disease Elevated Thyroid Stimulating Hormone Pain Low Back Chronic Body Mass Index 32.0 To 32.9 Adult General Medical Examination Adult documented in this encounter Additional Health Concerns Assessment Noted Time PHQ-9 Depression Total Score: 0 11/02/20 18 2:45 PM LIBRARY MEDIA SPECIALIST documented as of this encounter Care Teams Real Estate Sales Agent Relationship Specialty Start Date End Date July Montalvo MPAS, P.A.-C. [address] [place] [address] [place] [address] PCP - General Internal Medicine 11/08/22 documented as of this encounter
--- OUTSIDE RECORDS SUMMARY | 2024-10-03 12:38 | XMS_ITS | Encounter Summary ---
Author Organization [facility] Address [address] [place] [address] Care Team Providers Care Painter Name Role Phone July Montalvo P.A.-C. Primary Care Pro vider Reason for Referral * Outpatient (Routine) - Authorized Specialty Diagnoses / Procedures Referred By Contcassandra t Referred To Contact Community Internal Medicine July Montalvo MPAS, P.A.-COmer [address] [place] [address] Phone: tel: fax: [facility] Region Referral ID Status Reason Start Date Expiration Date V isits Requested Visits Authorized [id number] Authorized 07/19/2024 01/18/2026 1 1 Encounter Details Date Type Department Care Team (Late st Contact Info) Description 07/19/2024 Orders Only Department of Community Internal Medicine in [place], [place] [address] [place] [address] July Montalvo MPAS, P.A.-COmer [address] [place] [address] Thyroiditis Ray's (Primary Dx); Hyperlipidemia; Screening Test Laboratory; General Medical Examination Adult Social History Tobacco Use Types Packs/Day Years Used Date Smoking Tobacco: Never Smokeless Tobacco: Never Alcohol Use Standard Drinks/Week Comments Yes 1 (1 standard drink = 0.6 oz pur e alcohol) Occasional. [facility] Utilities Answer Date Recorded In the past 12 months has e electric, gas, oil, or water company threatened to shut off services in your [...] often do you attend chur ch or hinduism services? 1 to 4 times per year 02/05/2022 Do you belong to any clubs o r organizations such as faith groups, unions, fraternal or athletic groups, or [...] Answer Date Recorded PHQ-2 Score 0 12/20/2023 [facility] of Occupat ional Health - Occupational Stress [...] your living situation today? I have a [facility] place to live 07/10/2024 Education Answer Date Recorded What is the highest level of school you have completed or the highest degree you have received? 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 Not on file Not on file documented as of this encounter Plan of Treatment Scheduled Orders Name Type Priority Associated Diagnoses Orde r Schedule S-TSH (Thyroid-Stimulating Hormone - Sensitive) Lab Routine Thyroiditis Ray's Expected: 07/19/2025, Expires: 10/18/2025 T4 (Thyroxine), Free Lab Routine Thyroiditis Ray's Expected: 07/19/2025, Expires: 10/18/2025 Basic Metabolic Panel Lab Routine General Medical Examination Adult Expected: 07/19/2025 (Approximate), Expires: 10/18/2025 Glucose, Fasting Lab Routine Screening Test Laboratory Expected: 07/19/2025 (Approximate), Expires: 10/18/2025 Lipid Panel Lab Routine Hyperlipidemia Expected: 07/19/2025 (Approximate), Expires: 10/18/2025 PSA (Prostate-Specific Antigen) Screen Lab Routine Screening Test Laboratory Expected: 07/19/2025, Expires: 10/18/2025 Scheduled Referrals Name Type Priority Associated Diagnoses Orde r Schedule Community Internal Medicine office visit (clinic) Outpatient Referral Routine Expected: 07/19/2025 (Approximate), Expires: 10/18/2025 documented as of this encounter Visit Diagnoses Diagnosis Thyroiditis Ray's- Primary Hyperlipidemia Screening Test Laboratory General Medical Examination Adult documented in this encounter Additional Health Concerns Assessment Noted Time PHQ-9 Depression Total Score: 0 11/02/20 18 2:45 PM SPECIAL FORCES COMMUNICATIONS SERGEANT documented as of this encounter Care Teams Painter Relationship Specialty Start Date End Date July Montalvo MPAS, P.A.-C. [address] [place] [address] PCP - General Internal Medicine 11/08/22 documented as of this encounter
--- OUTSIDE RECORDS SUMMARY | 2024-10-03 12:38 | XMS_ITS | Encounter Summary ---
Author Organization [facility] Address [address] [place] [address] Care Team Providers Care Media Clerk Name Role Phone July Montalvo P.A.-COmer Primary Care Pro vider Encounter Details Date Type Department Care Team (Latest Contact Info) Description 09/20/2024 10:27 AM CLINICAL RN - 09/20/2024 11:59 PM [facility] Hospital Encounter Department of Laboratory Medicine in [place], [place] [address] [place] [phone] July Montalvo MPAS P.A.-COmer [address] [place] [phone] Preanesthetic Medical Exam Discharge Disposition: Home or Self Care Social History Tobacco Use Types Packs/Day Years Used Date Smoking Tobacco: Never Smokeless Tobacco: Never Alcohol Use Standard Drinks/Week Comments Yes 1 (1 standard drink = 0.6 oz pur e alcohol) Occasional. [facility] Utilities Answer Date Recorded In the past 12 months has e electric, gas, oil, or water [employer] threatened to shut off services in your [...] How often do you attend chur or gnosticism services? 1 to 4 times per year 02/05/2022 Do you belong to any clubs o r organizations such as rastafarian groups, unions, fraternal or athletic groups, or [...] Answer Date Recorded PHQ-2 Score 0 12/20/2023 [facility] [place] of Occupat ional Health - Occupational Stress [...] your living situation today? I have a [facility] place to live 07/10/2024 Education Answer Date Recorded What is the highest level of school you have completed or the highest degree you have received? 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 Not on file Not [...] WITH DIFFERENTIAL, B Routine 09/20/2024 10:33 AM CLINICAL RN Preanesthetic Medical Exam documented in this encounter Results * (ABNORMAL) CBC with Differential, Blood (09/20/2024 10:33 AM CLINICAL RN) Hemoglobin 16.2 13.2 - 16.6 g/dL 09/20/2024 10:40 AM CLINICAL RN FB60 Hematocrit 47.0 38.3 - 48.6 % 09/20/2024 10:40 AM CLINICAL RN FB60 Erythrocytes 5.32 4.35 - 5.65 x10(12)/L 09/20/2024 10:40 AM CLINICAL RN FB60 MCV 88.3 78.2 - 97.9 fL 09/20/2024 10:40 AM CLINICAL RN FB60 RBC Distrib Width 12.1 11.8 - 14.5 % 09/20/2024 10:40 AM CLINICAL RN FB60 Platelet Count 283 135 - 317 x10(9)/L 09/20/2024 10:40 AM CLINICAL RN FB60 Leukocytes 8.3 3.4 - 9.6 x10(9)/L 09/20/2024 10:40 AM CLINICAL RN FB60 Neutrophils 5.03 1.56 - 6.45 x10(9)/L 09/20/2024 10:40 AM CLINICAL RN FB60 Lymphocytes 2.18 0.95 - 3.07 x10(9)/L 09/20/2024 10:40 AM CLINICAL RN FB60 Monocytes 0.93(H) 0.26 - 0.81 x10(9)/L 09/20/2024 10:40 AM CLINICAL RN FB60 Eosinophils 0.15 0.03 - 0.48 x10(9)/L 09/20/2024 10:40 AM CLINICAL RN FB60 Basophils <0.04 0.01 - 0.08 x10(9)/L 09/20/2024 10:40 AM CLINICAL RN FB60 Blood (Blood, Venous) 09/20/2024 10:33 AM CLINICAL RN 09/20/2024 10:33 AM CLINICAL RN us July ROJAS, P.A.-C. LAB BLOOD ADD-ON Final Result [facility] [address] [place] [address], [facility] FB60 [facility] [place] [address] [facility] [place] [address] documented in this encounter Visit Diagnoses Diagnosis Preanesthetic Medical Exam documented in this encounter Additional Health Concerns Assessment Noted Time PHQ-9 Depression Total Score: 0 11/02/20 18 2:45 PM CLINICAL RN documented as of this encounter Care Teams Media Clerk Relationship Specialty Start Date End Date July Montalvo MPAS, P.A.-C. [address] [facility] [place] [address] PCP - General Internal Medicine 11/08/22 documented as of this encounter
--- OUTSIDE RECORDS SUMMARY | 2024-10-03 12:38 | XMS_ITS | Encounter Summary ---
Author Organization [facility] Address [address] [place] [address] Care Team Providers Care Tattoo Artist Name Role Phone July Montalvo P.A.-C. Primary Care Pro vider Encounter Details Date Type Department Care Team (Latest Contact Info) Description 07/17/2024 9:09 AM CDT - 07/17/2024 11:59 PM T Hospital Encounter Department of Laboratory Medicine in [place], [place] [address] [place] [phone] July Montalvo MPAS, P.A.-Fely [address] [place] [phone] Hypertension Essential Primary; Screening Test Laboratory; Hyperlipidemia; Body Mass Index 32.0 To 32.9 Adult; General Medical Examination Adult; Elevated Thyroid Stimulating Hormone Discharge Disposition: Home or Self Care Social History Tobacco Use Types Packs/Day Years Used Date Smoking Tobacco: Never Smokeless Tobacco: Never Alcohol Use Standard Drinks/Week Comments Yes 1 (1 standard drink = 0.6 oz pur e alcohol) Occasional. [facility] Utilities Answer Date Recorded In the past 12 months has e [employer], gas, oil, or water gamesGRABR threatened to shut off services in your [...] How often do you attend chur or pentecostalism services? 1 to 4 times per year 02/05/2022 Do you belong to any clubs o r organizations such as evangelical groups, unions, fraternal or athletic groups, or [...] Answer Date Recorded PHQ-2 Score 0 12/20/2023 [facility] - Occupational Stress [...] your living situation today? [facility] live 07/10/2024 Education Answer Date Recorded What is the highest level of school you have completed or the highest degree you have received? 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 10/20/2010 documented as of this encounter Plan of Treatment Not on file documented as of this encounter Procedures Procedure Name Priority Date/Time Associated Diagnosis Comments ME T4 FREE Routine 07/17/2024 9:15 AM CDT LIPID PANEL, S Routine 07/17/2024 9:15 AM CDT Hypertension Essential Primary Hyperlipidemia Body Mass Index 32.0 To 32.9 Adult General Medical Examination Adult THYROID FUNCTION CASCADE, S Routine 07/17/2024 9:15 AM CDT Elevated Thyroid Stimulating Hormone PROSTATE-SPECIFIC AG (PSA) SCRN, S Routine 07/17/2024 9:15 AM CDT Screening Test Laboratory THYROPEROXIDASE (TPO) ABS, S Routine 07/17/2024 9:15 AM CDT GLUCOSE, FASTING, S/P Routine 07/17/2024 9:15 AM CDT Hypertension Essential Primary Hyperlipidemia Body Mass Index 32.0 To 32.9 Adult General Medical Examination Adult BASIC METABOLIC PANEL, S/P Routine 07/17/2024 9:15 AM CDT Hypertension Essential Primary documented in this encounter Results * (ABNORMAL) Thyroperoxidase (TPO) Antibodies (07/17/2024 9:15 AM CDT) Thyroperoxidase Ab, S 348.0(H) <34.0 IU/mL 07/18/2024 2:59 PM CDT DTL Blood 07/17/2024 9:15 AM CDT 07/18/2024 2:32 PM CDT us July ROJAS, P.A.-C. LAB BLOOD ADD-ON Final Result [facility] [address] [place] [address], [facility] DTL [facility] [address] [place] [address] * T4 (Thyroxine), Free, Serum (07/17/2024 9:15 AM CDT) T4 (Thyroxine), Free, S 0.9 0.9 - 1.7 ng/dL 07/17/2024 2:26 PM CDT OWAT Blood 07/17/2024 9:15 AM CDT 07/17/2024 1:01 PM CDT July ROJAS, P.A.-C. LAB BLOOD ADD-ON Final Result Performing Organization Address [facility] Co de Phone Number [facility] [address] [address], [facility] OWAT [facility] [address] [place] [address] * (ABNORMAL) Thyroid Function [place] (07/17/2024 9:15 AM CDT) TSH, Sensitive 4.8(H) 0.3 - 4.2 mIU/L 07/17/2024 1:42 PM CDT OWAT Blood (Blood, Venous) 07/17/2024 9:15 AM CDT 07/17/2024 1:01 PM CDT July ROJAS, P.A.-C. LAB BLOOD ADD-ON Final Result Performing Organization Address [facility] de Phone Number [facility] [address] [address], [facility] [place] [address] [place] [address] * Glucose, Fasting (07/17/2024 9:15 AM CDT) Glucose, P 92 70 - 100 mg/dL 07/17/2024 1:18 PM CDT OWAT Last Intake 14 hr 07/17/2024 1:00 PM CDT [facility] Blood (Blood, Venous) 07/17/2024 9:15 AM CDT 07/17/2024 12:59 PM CDT July Katia ROJAS, P.A.-C. LAB BLOOD NON ADD -ON Final Result [facility] [address] [place] [address], [place] OW[facility] [place] [address] [place] [address] * (ABNORMAL) Lipid Panel (07/17/2024 9:15 AM [...] AM CDT 07/17/2024 1:01 PM CDT July ROJAS P.A.-C. LAB BLOOD ADD-ON Final Result Performing Organization Address [facility] Co de Phone Number [facility] [address] [place] [address], [facility] OW[facility] [place] [address] [place] [address] * PSA (Prostate-Specific Antigen) Screen (07/17/2024 9:15 AM CDT) Prostate-Specific Ag 2.0 <=3.5 ng/mL 07/17/2024 1:37 PM CDT OWAT Comment: ----ADDITIONAL INFORMATION---- The testing method is [...] 9:15 AM CDT 07/17/2024 1:00 PM CDT Leena DuarteA.-C. LAB BLOOD ADD-ON Final Result Performing Organization Address [facility] Co de Phone Number [facility] [address] [place] [address], [place] [facility] [place] [address], [place] [address] * Basic Metabolic Panel (07/17/2024 9:15 AM [...] ROJAS, P.A.-C. LAB BLOOD ADD-ON Final Result [facility] [address] [place] [address], [facility] OWAT [facility] [place] [address], [place] [address] documented in this encounter Visit Diagnoses Diagnosis Hypertension Essential Primary Screening Test Laboratory Hyperlipidemia Body Mass Index 32.0 To 32.9 Adult General Medical Examination Adult Elevated Thyroid Stimulating Hormone documented in this encounter Additional Health Concerns Assessment Noted Time PHQ-9 Depression Total Score: 0 11/02/20 18 2:45 PM [employer] documented as of this encounter Care Teams Tattoo Artist Relationship Specialty Start Date End Date July Montalvo MPAS, P.A.-C. [address] [place], [place] [address]SAS[place] [phone] PCP - General Internal Medicine 11/08/22 documented as of this encounter
--- OUTSIDE RECORDS SUMMARY | 2024-10-03 12:38 | XMS_ITS | Continuity of Care Document ---
Author Organization [facility] Address [address] [place] [address] [address] [place] [address] Phone Care Team Providers Care Organ Grinder Name Role Phone Marta Riley MD Unavailable Unavailable Procedures Procedure Date Office/outpatient visit,est, mod 2010 X-ray exam lower spine 2-3 views 2010 Office/outpatient visit,est, mod 2009 Special serv NEC, procedor report Office/outpatient visit,new, mod 2009 Special serv NEC, procedor report Advance Directives Directive Yes / No Effective Date File Name No Information Encounters Encounter Description Practice Location Reason(s) For Visit Diagnoses Date Provider Providers Copied on Encounter Office/outpat ient visit,est, mod [facility], [address] [place] [address], [facility], tel:[phone] [employer] No Information 1 Osvaldo Lozano. [facility], [address] [place] [address] [address], [place], [id number], [place]. tel:[phone] Office/outpat ient visit,est, mod [facility], [address] [place], [place] [address], [place], [facility], tel:[phone] [employer] No Information 0 0 Dimple Frost. [facility], [address] [place] [address] [address], [place], [place], [id number], [place]. tel:[phone] Office/outpat ient visit,new, mod [facility], [address], [place], [address], [place] tel:[phone] JOEL Mcfarland No Information Sep-2 3-201 0 Dimple Frost. [facility], [address], [place], [place], [id number], [place]. tel:[phone] Family History Family Member Type Diagnosis Age At Onset No Information Payers Payer name Insurance type Covered green party ID Authoriza mathieu(s) No Information Social History Type Description Quantity Date Captured Comments Sex Male Smoking Status No Information Vital Signs Date / Time: Height Weight BMI Pulse Rate Blood Pressure Temperature Respiratory Rate Body Surface Area Head Circumference Head Circ. Percentile Wt./Toño. Percentile BMI percentile Pulse Ox Inhaled Ox 67.50 in 99.800 kg (220.06 lbs) Chief Complaint And Reason For Visit No Information Reason For Referral Reason For Referral No Information History Of Present Illness Encounter Date Complaint History Of Prese nt Illness No Information Functional Status Date Functional Assessmen t No Information Instructions Date Instruction Additional Infor mation No Information Assessments Type Assessment Date No Information Patient Care Teams Name Effective Dates (start - stop) Status Members No Information
== END 2024-09-28 12:00 | disposition home or self-care (01) | DRG 301 ==
LOC: OR 17:52 → MEDSURG 09-28 08:15
PROVIDERS: Nurse Anesthetist, Certified Registered; Admitting Provider Orthopaedic Surgery; PCP Internal Medicine; Visit Provider Family Medicine
PROC: 0SR90JZ Replacement of Right Hip Joint with Synthetic Substitute, Open Approach (ICD-10-PCS; CPT 27130; principal; 2024-09-26 12:30)
DX: M16.0 Bilateral primary osteoarthritis of hip (principal); G89.18 Other acute postprocedural pain; I10 Essential (primary) hypertension; E78.5 Hyperlipidemia, unspecified; E05.90 Thyrotoxicosis, unspecified without thyrotoxic crisis or storm; G47.30 Sleep apnea, unspecified
CPT/HCPCS: 01214; 36415; 51701; 51702; 51798; 64450; 73501; 76000; 76942; 82565; 84132; 84295; 84520; 85018; 85025; 86850; 86900; 86901; 97110; 97116; 97161; 97165; 97530; 97535; A9270; C1776; C9290; J0665; J0690; J1100; J1171; J2250; J2371; J2405; J2704; J2710; J3010; J3475; J3490; J7120

== ENCOUNTER 2024-11-07 13:00 | Outpatient (RCR) | payer BC, SELFPAY | END 2024-11-21 09:12 | disposition home or self-care (01) | PROVIDERS: PCP Internal Medicine; Visit Provider Orthopaedic Surgery | DX: M16.0 Bilateral primary osteoarthritis of hip (principal); Z96.643 Presence of artificial hip joint, bilateral; M25.552 Pain in left hip; M25.551 Pain in right hip; M25.60 Stiffness of unspecified joint, not elsewhere classified; Z51.89 Encounter for other specified aftercare | CPT/HCPCS: 97110; 97116; 97140; 97161; 97164; 97530 ==